=== PATIENT | male | born 1965 ===

== ENCOUNTER 2016-10-02 19:52 | Inpatient (IN) | payer MEDICAID, OTHER ==
[2016-10-02 19:52] VITALS: BMI 31.4
--- NOTE | 2016-10-02 20:26 | C.PDOC ---
History Of Present Illness Patient presents to the ED seeking detox after admitting to drinking. There are no available beds for detox currently. Patient also complains of chest discomfort and denies nausea, vomiting, and fever. Time Seen by Provider: 10/02/16 20:26 Chief Complaint (Nursing): Chest Pain History Per: Patient History/Exam Limitations: no limitations Onset/Duration Of Symptoms: Hrs Current Symptoms Are (Timing): Still Present Severity: Moderate Pain Scale Rating Of: 4 Quality: Other (discomfort) Exacerbating Factors: denies: None Alleviating Factors: None Recent travel outside of the [place]: No Additional History Per: Family Past Medical History Reviewed: Historical Data, Nursing Documentation, Vital Signs Vital Signs: Last Vital Signs Temp 98.2 F 10/02/16 20:00 Pulse 72 10/02/16 22:00 Resp 18 10/02/16 22:00 BP 110/59 L 10/02/16 22:00 Pulse Ox 99 10/02/16 22:00 - Medical History PMH: Anxiety, Depression, Gastritis, HTN, Kidney Stones, Chronic Kidney Disease , Sleep Apnea Surgical History: Endoscopy - [facility] Procedures ALCOHOL DETOXIFICATION (10/22/14) INJECT/INFUSE ELECTROLYT (04/07/14) INJECT/INFUSE NEC (04/07/14) INSERTION OF ENDOTRACHEAL AIRWAY INTO TRACHEA, VIA OPENING (02/27/15) RESPIRATORY VENTILATION, 24-96 CONSECUTIVE HOURS (02/27/15) Family History: States: No Known Family Hx - Social History Hx Tobacco Use: No Hx Alcohol Use: Yes Hx Substance Use: No - Immunization History Hx Tetanus Toxoid Vaccination: No Hx Influenza Vaccination: No Hx Pneumococcal Vaccination: No Review Of Systems Constitutional: Negative for: Fever, Chills, Sweats ENT: Negative for: Throat Pain Cardiovascular: Positive for: Chest Pain Respiratory: Negative for: Cough, Shortness of Breath Gastrointestinal: Negative for: Nausea, Vomiting, Abdominal Pain, Diarrhea Musculoskeletal: Negative for: Back Pain Skin: Negative for: Rash, Lesions, Jaundice Neurological: Negative for: Weakness Psych: Negative for: Anxiety Physical Exam - Physical Exam Appears: Non-toxic, No Acute Distress, Other (EtOH on breath ) Skin: Warm, Dry Head: Atraumatic Eye(s): bilateral: Normal Inspection Oral Mucosa: Moist Neck: Supple Chest: Symmetrical Cardiovascular: Rhythm Regular Respiratory: No Accessory Muscle Use, No Rales, No Rhonchi, No Wheezing Gastrointestinal/Abdominal: Soft, No Tenderness, No Distention, No Guarding, No Rebound, No Hernia Back: Normal Inspection Extremity: Normal ROM, No Tenderness Extremity: Bilateral: Atraumatic, Normal Color And Temperature, Normal ROM Neurological/Psych: Oriented x3, Normal Speech, Normal Cognition Gait: Steady ED Course And Treatment - Laboratory Results Result Diagrams: 10/02/16 20:40 10/02/16 20:40 ECG: Interpreted By Me, Viewed By Me ECG Rhythm: Sinus Rhythm (71), Nonspecific Changes O2 Sat by Pulse Oximetry: 98 Pulse Ox Interpretation: Normal - Radiology CXR: Interpreted by Me, Viewed By Me CXR Interpretation: Yes: Other (? rll infiltrate). No: Fracture, Pnemothorax Progress Note: cardiac work up, asa Disposition Discussed With DrThais: Alexander Licona Comment: accepted the pt on his service and took over the care at 10:39PM Doctor Will See Patient In The: ED Counseled Patient/Family Regarding: Studies Performed, Diagnosis - Disposition Disposition: HOSPITALIZED Disposition Time: 20:26 Condition: FAIR - POA Present On Arrival: Poor Glycemic Control - Clinical Impression Clinical Impression: Chest pain, Alcohol dependence, Acute renal insufficiency - Scribe Statement The provider has reviewed the documentation as recorded by the Scribe Cydney Ivory All medical record entries made by the Scribe were at my direction and personally dictated by me. I have reviewed the chart and agree that the record accurately reflects my personal performance of the history, physical exam, medical decision making, and the department course for this patient. I have also personally directed, reviewed, and agree with the discharge instructions and disposition. Decision To Admit - Pt Status Changed To: Hospital Disposition Of: Inpatient - Admit Certification Admit to Inpatient:: After my assessment, the patient will require hospitalization for at least two midnights. This is because of the severity of symptoms shown, intensity of services needed, and/or the medical risk in this patient being treated as an outpatient. - InPatient: Physician Admission Certification: I certify that this patient requires 2 or more midnights of care for the following reason:: After my assessment, the patient will require hospitalization for at least two midnights. This is because of the severity of symptoms shown, intensity of services needed, and/or the medical risk in this patient being treated as an outpatient. - . Bed Request Type: Telemetry Admitting Physician: Alexander Licona Patient Diagnosis: Chest pain, Alcohol dependence, Acute renal insufficiency
[2016-10-02] MEDS ORDERED: Sodium Chloride 0.9% 1,000 ML IV ONE (20:30)
[2016-10-02] MEDS ORDERED: Aspirin 325 mg EC Tablets PO STA (20:30)
[2016-10-02 20:43] LABS: BASO % 0.3 % (0.0-2.0); EOS % 0.1 % (0.0-4.0); HEMATOCRIT 44.9 % (35.0-51.0); LYMPH # 2.2 K/uL (1.0-4.3); LYMPH % 14.5 % (20.0-40.0); MEAN CORPUSCULAR HGB CONC 34.1 g/dL (33.0-37.0); MONO # 1.3 K/uL (0.0-0.8); MONO % 8.2 % (0.0-10.0); RED CELL DISTRIBUTION WIDTH 15.4 % (11.5-14.5)
[2016-10-02 20:45] LABS: WHITE BLOOD COUNT 15.3 K/uL (4.8-10.8)
[2016-10-02 20:51] LABS: INR 1.1
[2016-10-02 20:52] LABS: CHLORIDE 95 mmol/L (98-107)
[2016-10-02 20:53] LABS: POTASSIUM 2.6 mmol/L (3.6-5.2); SODIUM 136 mmol/L (132-148)
[2016-10-02] MEDS ORDERED: Sodium Chloride 0.9% 1,000 ML ONE (20:53)
[2016-10-02 20:55] LABS: ALB/GLOB RATIO 1.2 (1.0-2.1); AST/SGOT 44 U/L (17-59); BILIRUBIN,TOTAL 0.9 mg/dL (0.2-1.3); CARBON DIOXIDE 18 mmol/L (22-30); GFR AFRICAN-AMERICAN 17; TOTAL PROTEIN 8.2 g/dL (6.3-8.3)
[2016-10-02 20:56] LABS: ALKALINE PHOSPHATASE 120 U/L (38-126); ALT/SGPT 61 U/L (21-72); BLOOD UREA NITROGEN 23 mg/dL (9-20); CALCIUM 8.5 mg/dl (8.6-10.4); GLUCOSE,RANDOM 123 mg/dL (75-110)
[2016-10-02 20:57] LABS: ALCOHOL SERUM 52 mg/dl (0-10)
[2016-10-02] MEDS ORDERED: Potassium Chloride 10 mEq ER Tab PO STA (21:04)
[2016-10-02 22:08] LABS: RBC URINE 5 /hpf (0-3); URINE BACTERIA OCC (<OCC); URINE BILIRUBIN NEGATIVE (NEGATIVE); URINE BLOOD NEGATIVE (NEGATIVE); URINE COLOR Amber (YELLOW); URINE GLUCOSE (UA) NORMAL (Normal); URINE HYALINE CAST >20 /lpf (0-2); URINE KETONE TRACE mg/dL (NEGATIVE); URINE LEUKOCYTE ESTERASE NEG Leu/uL (Negative); URINE PROTEIN 1+ mg/dL (NEGATIVE); URINE UROBILINOGEN NORMAL mg/dL (0.2-1.0); WBC URINE 7 /hpf (0-5)
[2016-10-02] MEDS ORDERED: Potassium Chloride 20 mEq ER Tab PO ONE ×3 (22:37→23:05)
[2016-10-03] MEDS ORDERED: Potassium Chloride 20 mEq ER Tab PO ONE ×2 (00:29→00:37)
--- NOTE | 2016-10-03 00:40 | CP.PCM.HP ---
<Vijay Lucila RANGEL - Last Filed: 10/03/16 00:49> History of Present Illness - History of Present Illness History of Present Illness: Patient is a 51 year old male with past medical history of HTN and alcohol abuse who presents to the ED with complaint of chest pain, nausea, and vomiting. Patient states that chest pain began this morning and was squeezing in nature. Patient denies ever having this sensation before. Patient denies radiation and states that the pain did resolve on its own. Patient reports headache and diaphoresis at the time of the chest discomfort. Patient states that he does on occasion get chest pain and dizziness when he does not take his blood pressure medication. Patient states he does not think he took his blood pressure medication today. Patient denies abdominal pain but admits to vomiting several times a day for the past 3-4 days. He has also had decreased oral intake and decreased appetite for 3-4 days. Patient has a history of alcohol abuse but had quit drinking for approximately one year. Per family, the patient began drinking again 3 months ago when his son at age 30 of a seizure. Family states they have been trying to get to see a family therapist but have not been able to find one. Family states patient has been noticeably depressed. Per family, the patient has been drinking 10 beers per day in addition to small bottles of vodka or whiskey. Patient's last drink was the morning of admission. PMHx: HTN, alcohol abuse Meds: per EMR- metoprolol 100mg, cozaar 100mg- patient and family cannot verify - to bring medication bottles PSHx: gluteal abscess 07/2016, left knee surgery Fam Hx: denies HTN, DM, HLD, CVA, [place]; son 3 months ago at age 30 due to a seizure in his sleep after taking sleeping pills Social Hx:denies tobacco and drug use; alcohol use for 30+ years, was previously sober 1 year; currently drinks 10 beers/ day plus small bottle whiskey or vodka; lives with and younger son; currently unemployed due to alcohol use Present on Admission - Present on Admission Any Indicators Present on Admission: No Review of Systems - Constitutional Constitutional: absent: Chills, Fever, Weight Loss, Weakness - EENT Eyes: absent: Change in Vision Ears: absent: Dizziness - Cardiovascular Cardiovascular: Chest Pain (not at time of exam). absent: Dyspnea, Lightheadedness, Palpitations - Respiratory Respiratory: absent: Cough, Dyspnea - Gastrointestinal Gastrointestinal: Nausea, Vomiting. absent: Abdominal Pain, Hematemesis, Hematochezia, Melena - Genitourinary Genitourinary: Urinary Frequency. absent: Dysuria - Musculoskeletal Musculoskeletal: absent: Back Pain - Integumentary Integumentary: absent: Dry Skin, Rash, Sores - Neurological Neurological: absent: Dizziness, Weakness - Psychiatric Psychiatric: Depression Past Patient History - Infectious Disease Hx of Infectious Diseases: None - Tetanus Immunizations Tetanus Immunization: Unknown - Past Medical History & Family History Past Medical History?: Yes - Past Social History Smoking Status: Never Smoked - CARDIAC Hx Hypertension: Yes - PULMONARY Hx Sleep Apnea: Yes - HEENT Hx HEENT Problems: No - RENAL Hx Chronic Kidney Disease: Yes Hx Kidney Stones: Yes - ENDOCRINE/METABOLIC Hx Endocrine Disorders: No - INTEGUMENTARY Hx Dermatological Problems: No - MUSCULOSKELETAL/RHEUMATOLOGICAL Hx Musculoskeletal Disorders: Yes Hx Falls: Yes - GASTROINTESTINAL Hx Gastritis: Yes - GENITOURINARY/GYNECOLOGICAL Hx Sexually Transmitted Disorders: No - PSYCHIATRIC Hx Anxiety: Yes Hx Depression: Yes Hx Substance Use: No - ANESTHESIA Hx Anesthesia: Yes Hx Anesthesia Reactions: No Hx Malignant Hyperthermia: No Meds Allergies/Adverse Reactions: Allergies Allergy/AdvReac Type Severity Reaction Status Date / Time No Known Allergies Allergy Verified 10/02/16 20:10 Physical Exam - Constitutional Appears: Non-toxic, No Acute Distress - Head Exam Head Exam: ATRAUMATIC, NORMOCEPHALIC - Eye Exam Eye Exam: EOMI, PERRL. absent: Nystagmus, Scleral icterus - ENT Exam ENT Exam: Mucous Membranes Dry - Respiratory Exam Respiratory Exam: Clear to Auscultation Bilateral. absent: Rales, Rhonchi, Wheezes - Cardiovascular Exam Cardiovascular Exam: +S1, +S2 - GI/Abdominal Exam GI & Abdominal Exam: Distended, Normal Bowel Sounds, Soft. absent: Firm, Guarding, Tenderness Additional comments: no ascites - Extremities Exam Extremities exam: Positive for: normal inspection. Negative for: calf tenderness, pedal edema - Neurological Exam Neurological exam: Alert, CN II-XII Intact Additional comments: slight tremor in hands noted - Psychiatric Exam Psychiatric exam: Anxious - Skin Skin Exam: Normal Color, Warm Results - Vital Signs Recent Vital Signs: Last Vital Signs Temp 98.2 F 10/02/16 20:00 Pulse 81 10/03/16 00:09 Resp 18 10/03/16 00:09 BP 104/62 10/03/16 00:09 Pulse Ox 99 10/03/16 00:09 - Labs Result Diagrams: 10/02/16 20:40 10/02/16 20:40 Labs: Laboratory Results - last 24 hr 10/02/16 23:05 Magnesium 1.7 Assessment & Plan (1) Chest pain Assessment and Plan: ANAMARIA negative x 1, will continue to trend repeat EKG in AM Cardio consult- Dr. Chamberlain- help appreciated gave ASA 325mg once, will start 81mg daily will check echo starting crestor 5mg Status: Acute (2) Vomiting Assessment and Plan: will check lipase, abdominal ultrasound zofran prn Status: Acute (3) Acute renal insufficiency Assessment and Plan: will check renal ultrasound nephro consult- Dr. Golden- help appreciated will check urine 24hour protein, urine sodium, urine creatinine, urine osmolality, serum osmolality will start IVF after banana bag finishes Status: Acute (4) AA (alcohol abuse) Assessment and Plan: CIWA protocol fall precautions, seizure precautions, aspiration precautions ativan taper ativan IV prn seizure activity banana bag x 1, then start PO vitamins Status: Acute (5) Depression Assessment and Plan: patient depressed and started drinking again after of son 3 months ago psych consult placed, help appreciated Status: Acute (6) HTN (hypertension) Assessment and Plan: patient cannot verify meds- patient currently normotensive will continue to monitor on telemetry and add medications as necessary, pending home med verification Status: Chronic (7) Prophylactic measure Assessment and Plan: protonix daily SCDs seizure/ fall/ aspiration precautions CIWA protocol Status: Acute <Alexander Licona - Last Filed: 10/03/16 06:27> Results - Vital Signs Recent Vital Signs: Last Vital Signs Temp 97.9 F 10/03/16 05:09 Pulse 79 10/03/16 05:09 Resp 20 10/03/16 05:09 BP 100/62 10/03/16 05:09 Pulse Ox 96 10/03/16 05:09 - Labs Result Diagrams: 10/03/16 05:49 10/03/16 05:49 Labs: Laboratory Results - last 24 hr 10/02/16 10/03/1617 23:05 03:13 05:49 WBC 13.3 H RBC 4.62 Hgb 14.4 Hct 42.3 MCV 91.5 MCH 31.1 H MCHC 34.0 RDW 15.9 H Plt Count 264 MPV 9.0 Neut % (Auto) 69.4 Lymph % (Auto) 20.4 [place] % (Auto) 9.8 Eos % (Auto) 0.0 Baso % (Auto) 0.4 Neut # 9.3 H Lymph # 2.7 [place] # 1.3 H Eos # 0.0 Baso # 0.0 Sodium 134 Potassium 2.7 L Chloride 102 Carbon Dioxide 18 L Anion Gap 17 BUN 20 Creatinine 2.6 H Est GFR ( Amer) 31 Est GFR (Non-Af Amer) 26 Random Glucose 116 H Serum Osmolality 329 H Calcium 6.6 L Magnesium 1.7 Total Bilirubin 1.1 AST 33 ALT 45 Alkaline Phosphatase 85 Total Creatine Kinase 216 H 220 H CK-MB (Mass) 1.50 Troponin I, Quant < 0.0120 Total Protein 6.3 Albumin 3.3 L D Globulin 3.1 Albumin/Globulin Ratio 1.1 Triglycerides 83 Cholesterol 149 HDL Cholesterol 63 Lipase 191 Assessment & Plan - Date & Time Date: 10/03/16 (I have seen and examined the patient. I agree with the findings and plan of care as documented by Dr. Linares. Patient with chest pain. ROMIx3 with EKG. Aspirin and Statin. Alcohol abuse with nausea/ vomiting. WA protocol. Check Lipase. For acute renal insufficiency, give IVF. Consult Nephro. Monitor renal function. Monitor for acute changes.) Time: 06:26 Attending/Attestation - Attestation I have personally seen and examined this patient.: Yes I have fully participated in the care of the patient.: Yes I have reviewed all pertinent clinical information: Yes
[2016-10-03] MEDS: Folic Acid 1 MG, Thiamine 100 MG, Multivitamin (MVI) 10 ML in Dextrose 5% In Water 1,00... IV SCH ×2 (00:50→14:41)
[2016-10-03] MEDS: Sodium Chloride 0.9% 1,000 ML IV SCH ×3 (01:02→18:08)
[2016-10-03 05:58] LABS: BASO % 0.4 % (0.0-2.0); HEMATOCRIT 42.3 % (35.0-51.0); LYMPH # 2.7 K/uL (1.0-4.3); LYMPH % 20.4 % (20.0-40.0); MEAN CELL VOLUME 91.5 fL (80.0-94.0); MEAN CORPUSCULAR HEMOGLOBIN 31.1 pg (27.0-31.0); MONO # 1.3 K/uL (0.0-0.8); MONO % 9.8 % (0.0-10.0); NRBC % 0.1 % (0.0-2.0); RED CELL DISTRIBUTION WIDTH 15.9 % (11.5-14.5); WHITE BLOOD COUNT 13.3 K/uL (4.8-10.8)
[2016-10-03 06:15] LABS: POTASSIUM 2.7 mmol/L (3.6-5.2)
[2016-10-03 06:17] LABS: ALB/GLOB RATIO 1.1 (1.0-2.1); BILIRUBIN,TOTAL 1.1 mg/dL (0.2-1.3); TOTAL PROTEIN 6.3 g/dL (6.3-8.3)
[2016-10-03 06:18] LABS: CALCIUM 6.6 mg/dl (8.6-10.4)
[2016-10-03 06:33] LABS: T4 6.32 ug/dL (5.5-11.0)
[2016-10-03 06:47] LABS: THYROID STIMULATING HORMONE 0.69 mIU/L (0.46-4.68)
[2016-10-03] MEDS ORDERED: Potassium Chloride 20 mEq 100 ML IVPB ONE ×2 (07:50→12:00)
--- NOTE | 2016-10-03 08:11 | CP.PCM.CON ---
History of Present Illness - History of Present Illness History of Present Illness: I was asked to see patient for evalaution of chest pain. He is currently heavily sedated. Patient is being treated for alcohol abuse. Review of Systems - Review of Systems Systems not reviewed;Unavailable: Intoxicated Past Patient History - Infectious Disease Hx of Infectious Diseases: None - Tetanus Immunizations Tetanus Immunization: Unknown - Past Medical History & Family History Past Medical History?: Yes - Past Social History Smoking Status: Never Smoked - CARDIAC Hx Hypertension: Yes - PULMONARY Hx Sleep Apnea: Yes - HEENT Hx HEENT Problems: No - RENAL Hx Chronic Kidney Disease: Yes Hx Kidney Stones: Yes - ENDOCRINE/METABOLIC Hx Endocrine Disorders: No - INTEGUMENTARY Hx Dermatological Problems: No - MUSCULOSKELETAL/RHEUMATOLOGICAL Hx Musculoskeletal Disorders: Yes Hx Falls: Yes - GASTROINTESTINAL Hx Gastritis: Yes - GENITOURINARY/GYNECOLOGICAL Hx Sexually Transmitted Disorders: No - PSYCHIATRIC Hx Anxiety: Yes Hx Depression: Yes Hx Substance Use: No - ANESTHESIA Hx Anesthesia: Yes Hx Anesthesia Reactions: No Hx Malignant Hyperthermia: No Meds Allergies/Adverse Reactions: Allergies Allergy/AdvReac Type Severity Reaction Status Date / Time No Known Allergies Allergy Verified 10/02/16 20:10 - Medications Medications: Current Medications Aspirin (Aspirin Chewable) 81 mg PO DAILY [facility] Folic Acid (Folic Acid) 1 mg PO DAILY [facility] Folic Acid 1 mg/ Thiamine HCl 100 mg/ Multivitamins/Vitamin C 10 ml/ Dextrose 1 ,011.2 mls @ 75 mls/hr IV .[id number] [facility] Last Admin: 10/03/16 00:50 Dose: 75 mls/hr Sodium Chloride (Sodium Chloride 0.9%) 1,000 mls @ 125 mls/hr IV .Q8H [facility] Last Admin: 10/03/16 01:02 Dose: Not Given Potassium Chloride (Potassium Chloride 20 Meq/100 Ml) 100 mls @ 50 mls/hr IVPB ONCE ONE Stop: 10/03/16 09:49 Potassium Chloride (Potassium Chloride 20 Meq/100 Ml) 100 mls @ 50 mls/hr IVPB ONCE ONE Stop: 10/03/16 13:59 Lorazepam (Ativan) 2 mg PO Q4 [facility] PRN Reason: Taper Stop: 10/08/16 03:59 Last Admin: 10/03/16 05:06 Dose: 2 mg Lorazepam (Ativan) 1 mg IVP Q4 PRN PRN Reason: Seizure activity Multivitamins (Hexavitamin) 1 tab PO DAILY [facility] Ondansetron HCl (Zofran Inj) 4 mg IVP Q4H PRN PRN Reason: Nausea/Vomiting Pantoprazole Sodium (Protonix Ec Tab) 40 mg PO DAILY [facility] Rosuvastatin Calcium (Crestor) 5 mg PO HS [facility] Last Admin: 10/03/16 00:33 Dose: 5 mg Thiamine HCl (Vitamin B1 Tab) 100 mg PO DAILY [facility] Physical Exam - Constitutional Appears: Non-toxic - Head Exam Head Exam: NORMAL INSPECTION - Eye Exam Eye Exam: Normal appearance - ENT Exam ENT Exam: Mucous Membranes Moist - Neck Exam Neck exam: Positive for: Full Rom - Respiratory Exam Respiratory Exam: Decreased Breath Sounds - Cardiovascular Exam Cardiovascular Exam: REGULAR RHYTHM - GI/Abdominal Exam GI & Abdominal Exam: Normal Bowel Sounds - Rectal Exam Rectal Exam: Deferred - Extremities Exam Extremities exam: Negative for: pedal edema - Back Exam Back exam: NORMAL INSPECTION - Skin Skin Exam: Normal Color Results - Vital Signs Recent Vital Signs: Last Vital Signs Temp 97.8 F 10/03/16 06:00 Pulse 105 H 10/03/16 07:33 Resp 16 10/03/16 06:00 BP 106/67 10/03/16 06:00 Pulse Ox 99 10/03/16 06:00 - Labs Result Diagrams: 10/04/16 09:57 10/04/16 09:57 Labs: Laboratory Results - last 24 hr 10/02/16 10/03/16 10/03/16 23:05 03:13 05:49 WBC 13.3 H RBC 4.62 Hgb 14.4 Hct 42.3 MCV 91.5 MCH 31.1 H MCHC 34.0 RDW 15.9 H Plt Count 264 MPV 9.0 Neut % (Auto) 69.4 Lymph % (Auto) 20.4 [place] % (Auto) 9.8 Eos % (Auto) 0.0 Baso % (Auto) 0.4 Neut # 9.3 H Lymph # 2.7 [place] # 1.3 H Eos # 0.0 Baso # 0.0 Sodium 134 Potassium 2.7 L Chloride 102 Carbon Dioxide 18 L Anion Gap 17 BUN 20 Creatinine 2.6 H Est GFR ( Amer) 31 Est GFR (Non-Af Amer) 26 Random Glucose 116 H Serum Osmolality 329 H Calcium 6.6 L Magnesium 1.7 Total Bilirubin 1.1 AST 33 ALT 45 Alkaline Phosphatase 85 Total Creatine Kinase 216 H 220 H CK-MB (Mass) 1.50 1.81 Troponin I, Quant < 0.0120 < 0.0120 Total Protein 6.3 Albumin 3.3 L D Globulin 3.1 Albumin/Globulin Ratio 1.1 Triglycerides 83 Cholesterol 149 LDL Cholesterol Direct 67 HDL Cholesterol 63 Lipase 191 Thyroxine (T4) 6.32 TSH 3rd Generation 0.69 Assessment & Plan (1) Chest pain Assessment and Plan: unable to question pateint due to intaoxication. recommend serial cardaic enzymes. If negative consider outpatient stress test. Status: Acute (2) AA (alcohol abuse) Assessment and Plan: watch for delirium tremens Status: Acute (3) HTN (hypertension) Assessment and Plan: will need to monitor closely Status: Chronic
--- NOTE | 2016-10-03 08:11 | CP.PCM.CON ---
History of Present Illness - History of Present Illness History of Present Illness: patient seen/examind. full consult to follow. currently intoxicated. somnolent. check serial cardiac enzymes Past Patient History - Infectious Disease Hx of Infectious Diseases: None - Tetanus Immunizations Tetanus Immunization: Unknown - Past Medical History & Family History Past Medical History?: Yes - Past Social History Smoking Status: Never Smoked - CARDIAC Hx Hypertension: Yes - PULMONARY Hx Sleep Apnea: Yes - HEENT Hx HEENT Problems: No - RENAL Hx Chronic Kidney Disease: Yes Hx Kidney Stones: Yes - ENDOCRINE/METABOLIC Hx Endocrine Disorders: No - INTEGUMENTARY Hx Dermatological Problems: No - MUSCULOSKELETAL/RHEUMATOLOGICAL Hx Musculoskeletal Disorders: Yes Hx Falls: Yes - GASTROINTESTINAL Hx Gastritis: Yes - GENITOURINARY/GYNECOLOGICAL Hx Sexually Transmitted Disorders: No - PSYCHIATRIC Hx Anxiety: Yes Hx Depression: Yes Hx Substance Use: No - ANESTHESIA Hx Anesthesia: Yes Hx Anesthesia Reactions: No Hx Malignant Hyperthermia: No Meds Allergies/Adverse Reactions: Allergies Allergy/AdvReac Type Severity Reaction Status Date / Time No Known Allergies Allergy Verified 10/02/16 20:10 - Medications Medications: Current Medications Aspirin (Aspirin Chewable) 81 mg PO DAILY [facility] Folic Acid (Folic Acid) 1 mg PO DAILY [facility] Folic Acid 1 mg/ Thiamine HCl 100 mg/ Multivitamins/Vitamin C 10 ml/ Dextrose 1 ,011.2 mls @ 75 mls/hr IV .[id number] [facility] Last Admin: 10/03/16 00:50 Dose: 75 mls/hr Sodium Chloride (Sodium Chloride 0.9%) 1,000 mls @ 125 mls/hr IV .Q8H [facility] Last Admin: 10/03/16 01:02 Dose: Not Given Potassium Chloride (Potassium Chloride 20 Meq/100 Ml) 100 mls @ 50 mls/hr IVPB ONCE ONE Stop: 10/03/16 09:49 Potassium Chloride (Potassium Chloride 20 Meq/100 Ml) 100 mls @ 50 mls/hr IVPB ONCE ONE Stop: 10/03/16 13:59 Lorazepam (Ativan) 2 mg PO Q4 [facility] PRN Reason: Taper Stop: 10/08/16 03:59 Last Admin: 10/03/16 05:06 Dose: 2 mg Lorazepam (Ativan) 1 mg IVP Q4 PRN PRN Reason: Seizure activity Multivitamins (Hexavitamin) 1 tab PO DAILY [facility] Ondansetron HCl (Zofran Inj) 4 mg IVP Q4H PRN PRN Reason: Nausea/Vomiting Pantoprazole Sodium (Protonix Ec Tab) 40 mg PO DAILY [facility] Rosuvastatin Calcium (Crestor) 5 mg PO HS [facility] Last Admin: 10/03/16 00:33 Dose: 5 mg Thiamine HCl (Vitamin B1 Tab) 100 mg PO DAILY [facility] Results - Vital Signs Recent Vital Signs: Last Vital Signs Temp 97.8 F 10/03/16 06:00 Pulse 105 H 10/03/16 07:33 Resp 16 10/03/16 06:00 BP 106/67 10/03/16 06:00 Pulse Ox 99 10/03/16 06:00 - Labs Result Diagrams: 10/03/16 05:49 10/03/16 05:49 Labs: Laboratory Results - last 24 hr 10/02/16 10/03/16 10/03/16 23:05 03:13 05:49 WBC 13.3 H RBC 4.62 Hgb 14.4 Hct 42.3 MCV 91.5 MCH 31.1 H MCHC 34.0 RDW 15.9 H Plt Count 264 MPV 9.0 Neut % (Auto) 69.4 Lymph % (Auto) 20.4 [place] % (Auto) 9.8 Eos % (Auto) 0.0 Baso % (Auto) 0.4 Neut # 9.3 H Lymph # 2.7 [place] # 1.3 H Eos # 0.0 Baso # 0.0 Sodium 134 Potassium 2.7 L Chloride 102 Carbon Dioxide 18 L Anion Gap 17 BUN 20 Creatinine 2.6 H Est GFR ( Amer) 31 Est GFR (Non-Af Amer) 26 Random Glucose 116 H Serum Osmolality 329 H Calcium 6.6 L Magnesium 1.7 Total Bilirubin 1.1 AST 33 ALT 45 Alkaline Phosphatase 85 Total Creatine Kinase 216 H 220 H CK-MB (Mass) 1.50 1.81 Troponin I, Quant < 0.0120 < 0.0120 Total Protein 6.3 Albumin 3.3 L D Globulin 3.1 Albumin/Globulin Ratio 1.1 Triglycerides 83 Cholesterol 149 LDL Cholesterol Direct 67 HDL Cholesterol 63 Lipase 191 Thyroxine (T4) 6.32 TSH 3rd Generation 0.69
--- NOTE | 2016-10-03 08:23 | RAD ---
PROCEDURE: CHEST RADIOGRAPH, 1 VIEW HISTORY: chest pain COMPARISON: 07/26/2016 FINDINGS: LUNGS: Mild venous congestion. PLEURA: No pneumothorax or pleural fluid seen. CARDIOVASCULAR: Normal. OSSEOUS STRUCTURES: No significant abnormalities. VISUALIZED UPPER ABDOMEN: Normal. OTHER FINDINGS: None. IMPRESSION: Mild venous congestion.
--- NOTE | 2016-10-03 09:32 | PCM.PSYCH ---
Initial Psychiatric Evaluation - Initial Psychiatric Evaluation Type of Admission: Voluntary Legal Status: Capacity Chief Complaint (in patient's own words): "I don't want to know anything" Patient's Reaction to Hospitalization: Positive History of Present Illness and Precipitating Events: The pt is seen, chart reviewed, case discussed with staff. History was obtained from patient, his answers were inconsistent at times. Pt is a 51 year old male that came to the ED yesterday, October 02 complaining of chest pain and seeking detox. Pt states that his called 911 for him. Pt lives with his in [place], [place]. Pt has 3 children, 2 are alive and 1 son . Pt stated that his son 3 months ago. Pt reports alcohol abuse that started 5 years ago. Pt admits to drinking more than 6 Budwiser beers every other day with a half of bottle of whiskey. Pt reports that he has been to detox many times. Pt states his last drink was yesterday morning. Pt denies other drug use. Pt denies smoking cigarettes. Pt complains of chest pain, SOB and sweating. Pt denies abdominal pain, headaches, nausea, vomiting and bodyaches. Pt denies thoughts of hurting himself or other people. Pt states he does not have any visual or auditory hallucinations. Pt denies depression or anxiety. Pt current mood is low. Pt stated that he "did not want to know anything about anything" multiple times throughout taking his history. He states his current plan is to attend a rehab center for 3 days. Past Medical History: Hypertension Past Psychiatric History: Denies Family Psychiatric History: Denies Family substance abuse: Father-alcohol Current Medications: Active Medications Generic Name Dose Route Start Last Admin Trade Name Mayur PRN Reason Stop Dose Admin Aspirin 81 mg 10/03/16 10:00 Aspirin Chewable PO DAILY WIL[facility]ID Folic Acid 1 mg 10/03/16 10:00 Folic Acid PO DAILY [facility] Folic Acid 1 mg/ Thiamine HCl 1,011.2 mls @ 75 mls/hr 10/02/16 23:45 10/03/16 00:50 100 mg/ Multivitamins/Vitamin IV 75 mls/hr C 10 ml/ Dextrose .[id number] [facility] Administration Sodium Chloride 1,000 mls @ 125 mls/hr 10/03/16 00:30 10/03/16 08:33 Sodium Chloride 0.9% IV 125 mls/hr .Q8H [facility] Administration Potassium Chloride 100 mls @ 50 mls/hr 10/03/16 07:50 10/03/16 08:34 Potassium Chloride 20 Meq/100 Ml IVPB 10/03/16 09:49 50 mls/hr ONCE ONE Administration Potassium Chloride 100 mls @ 50 mls/hr 10/03/16 12:00 Potassium Chloride 20 Meq/100 Ml IVPB 10/03/16 13:59 ONCE ONE Lorazepam 1 mg 10/03/16 00:31 Ativan IVP Q4 PRN Seizure activity Lorazepam 2 mg 10/03/16 09:29 Ativan PO 10/08/16 09:28 Q4 [facility] Taper Multivitamins 1 tab 10/03/16 10:00 Hexavitamin PO DAILY [facility] Ondansetron HCl 4 mg 10/03/16 00:45 Zofran Inj IVP Q4H PRN Nausea/Vomiting Pantoprazole Sodium 40 mg 10/03/16 10:00 Protonix Ec Tab PO DAILY [facility] Rosuvastatin Calcium 5 mg 10/03/16 00:30 10/03/16 00:33 Crestor PO 5 mg HS [facility] Administration Thiamine HCl 100 mg 10/03/16 10:00 Vitamin B1 Tab PO DAILY [facility] Past Psychiatric History - Past Psychiatric History Previous Treatment History: None Pertinent Medical Hx (Current Medical&Sleep Prob, Allergies): Allergies Allergy/AdvReac Type Severity Reaction Status Date / Time No Known Allergies Allergy Verified 10/02/16 20:10 Folic Acid 1 mg PO DAILY 08/01/16 Losartan Potassium [Cozaar] 100 mg PO DAILY 08/01/16 Metoprolol Succinate [Toprol XL] 100 mg PO DAILY 08/01/16 Review of Systems - Review of Systems All systems: reviewed and no additional remarkable complaints except - Psychiatric Psychiatric: Anxiety, Depression, Irritability Mental Status Examination - Personal Presentation Personal Presentation: Looks older than stated age - Affect Affect: Constricted, Depressed - Motor Activity Motor Activity: Calm - Reliability in Providing Information Reliability in Providing Information: Good - Speech Speech: Organized - Mood Mood: Depressed, Anxious - Formal Thought Process Formal Thought Process: No Impairment - Obsessions/Compulsions Obsessions: No Compulsions: No - Cognitive Functions Orientation: Person, Place, Situation, Time Sensorium: Alert Attention/Concentration: Attentive Abstract Thinking: [place] Estimate of Intelligence: Below average Judgement: Imparied, as evidence by: Poor judgement, Imparied, as evidence by: Lack of insight into illness - Risk Risk: Withdrawal, Diminished functioning - Strength & Assets Inventory Strength & Assets Inventory: Cooperative DSM 5 DX - DSM 5 DSM 5 Diagnosis: Major depressive disorder recurrent moderate Alcohol use disorder severe Alcohol withdrawal - Recommended/Plan of Treatment Treatment Recommendations and Plan of Treatment: Major depressive disorder recurrent moderate CBT Psychoeducation Supportive therapy, indivdual therapy Start Zoloft 50 mg PO Daily Alcohol use disorder severe As needed meds Monitor signs and symptoms ID/CBT Attend groups and activities Support and Psychoeducation Refer to program Alcohol withdrawal Lorazepam taper Folic acid 1 mg PO daily Multivitamins 1 tab PO daily Thiamine Hcl 100 mg PO daily CBT Supportive therapy, individual therapy Monitor signs and symptoms 33 min - Smoking Cessation Smoking Cessation Initiated: No
--- NOTE | 2016-10-03 10:59 | CP.PCM.CON ---
History of Present Illness - History of Present Illness History of Present Illness: 51 y/o male with Hx/o HTN, alcoholism Sleep Apnea is admitted to ICU for c/o chest pain which was squeezin & associated with diaphoresis. Renal consult is requested because of elevated BUN & Creat Pt had been drinking untill the morning of day of admission. Has been depressed because of the loss of 30 y/o son from seizure. Hx/o vomiting several times a day for the last 3-4 days. Pt has Hx/o kidney stones. Unclear at this time if he has chronic renal insufficiency Past Patient History - Infectious Disease Hx of Infectious Diseases: None - Tetanus Immunizations Tetanus Immunization: Unknown - Past Medical History & Family History Past Medical History?: Yes - Past Social History Smoking Status: Never Smoked - CARDIAC Hx Hypertension: Yes - PULMONARY Hx Sleep Apnea: Yes - HEENT Hx HEENT Problems: No - RENAL Hx Chronic Kidney Disease: Yes Hx Kidney Stones: Yes - ENDOCRINE/METABOLIC Hx Endocrine Disorders: No - INTEGUMENTARY Hx Dermatological Problems: No - MUSCULOSKELETAL/RHEUMATOLOGICAL Hx Musculoskeletal Disorders: Yes Hx Falls: Yes - GASTROINTESTINAL Hx Gastritis: Yes - GENITOURINARY/GYNECOLOGICAL Hx Sexually Transmitted Disorders: No - PSYCHIATRIC Hx Anxiety: Yes Hx Depression: Yes Hx Substance Use: No - ANESTHESIA Hx Anesthesia: Yes Hx Anesthesia Reactions: No Hx Malignant Hyperthermia: No Meds Allergies/Adverse Reactions: Allergies Allergy/AdvReac Type Severity Reaction Status Date / Time No Known Allergies Allergy Verified 10/02/16 20:10 - Medications Medications: Current Medications Aspirin (Aspirin Chewable) 81 mg PO DAILY [facility] Folic Acid (Folic Acid) 1 mg PO DAILY [facility] Folic Acid 1 mg/ Thiamine HCl 100 mg/ Multivitamins/Vitamin C 10 ml/ Dextrose 1 ,011.2 mls @ 75 mls/hr IV .[id number] [facility] Last Admin: 10/03/16 00:50 Dose: 75 mls/hr Sodium Chloride (Sodium Chloride 0.9%) 1,000 mls @ 125 mls/hr IV .Q8H [facility] Last Admin: 10/03/16 08:33 Dose: 125 mls/hr Potassium Chloride (Potassium Chloride 20 Meq/100 Ml) 100 mls @ 50 mls/hr IVPB ONCE ONE Stop: 10/03/16 13:59 Lorazepam (Ativan) 1 mg IVP Q4 PRN PRN Reason: Seizure activity Lorazepam (Ativan) 2 mg PO Q4 [facility] PRN Reason: Taper Stop: 10/08/16 09:28 Multivitamins (Hexavitamin) 1 tab PO DAILY [facility] Ondansetron HCl (Zofran Inj) 4 mg IVP Q4H PRN PRN Reason: Nausea/Vomiting Pantoprazole Sodium (Protonix Ec Tab) 40 mg PO DAILY [facility] Rosuvastatin Calcium (Crestor) 5 [address] [facility] Last Admin: 10/03/16 00:33 Dose: 5 mg Thiamine HCl (Vitamin B1 Tab) 100 mg PO DAILY [facility] Physical Exam - Constitutional Additional comments: Pt is obese. Fruity odor on breath. Loud snoring noted - Head Exam Head Exam: ATRAUMATIC, NORMOCEPHALIC - Eye Exam Additional comments: No icterus - ENT Exam ENT Exam: Mucous Membranes Dry - Neck Exam Additional comments: Neck supple - Respiratory Exam Additional comments: Lungs clear - Cardiovascular Exam Cardiovascular Exam: Tachycardia, REGULAR RHYTHM Additional comments: 112/min - GI/Abdominal Exam Additional comments: Obese. Nontender - Rectal Exam Rectal Exam: Deferred - Extremities Exam Additional comments: No pedal edema or cyanosis - Neurological Exam Additional comments: Lethargic but arousable. Answers simple question by nodding Moves all extrem equally Results - Vital Signs Recent Vital Signs: Last Vital Signs Temp 97.8 F 10/03/16 06:00 Pulse 105 H 10/03/16 07:33 Resp 16 10/03/16 06:00 BP 106/67 10/03/16 06:00 Pulse Ox 99 10/03/16 06:00 - Labs Result Diagrams: 10/03/16 05:49 10/03/16 05:49 Labs: Laboratory Results - last 24 hr 10/02/16 10/03/16 10/03/16 23:05 03:13 05:49 WBC 13.3 H RBC 4.62 Hgb 14.4 Hct 42.3 MCV 91.5 MCH 31.1 H MCHC 34.0 RDW 15.9 H Plt Count 264 MPV 9.0 Neut % (Auto) 69.4 Lymph % (Auto) 20.4 Bath % (Auto) 9.8 Eos % (Auto) 0.0 Baso % (Auto) 0.4 Neut # 9.3 H Lymph # 2.7 Bath # 1.3 H Eos # 0.0 Baso # 0.0 Sodium 134 Potassium 2.7 L Chloride 102 Carbon Dioxide 18 L Anion Gap 17 BUN 20 Creatinine 2.6 H Est GFR ( Amer) 31 Est GFR (Non-Af Amer) 26 Random Glucose 116 H Hemoglobin A1c 5.9 Serum Osmolality 329 H Calcium 6.6 L Magnesium 1.7 Total Bilirubin 1.1 AST 33 ALT 45 Alkaline Phosphatase 85 Total Creatine Kinase 216 H 220 H CK-MB (Mass) 1.50 1.81 Troponin I, Quant < 0.0120 < 0.0120 Total Protein 6.3 Albumin 3.3 L D Globulin 3.1 Albumin/Globulin Ratio 1.1 Triglycerides 83 Cholesterol 149 LDL Cholesterol Direct 67 HDL Cholesterol 63 Lipase 191 Thyroxine (T4) 6.32 TSH 3rd Generation 0.69 Ur Random Creatinine 10/03/16 08:18 WBC RBC Hgb Hct MCV MCH MCHC RDW Plt Count MPV Neut % (Auto) Lymph % (Auto) Bath % (Auto) Eos % (Auto) Baso % (Auto) Neut # Lymph # Bath # Eos # Baso # Sodium Potassium Chloride Carbon Dioxide Anion Gap BUN Creatinine Est GFR ( Amer) Est GFR (Non-Af Amer) Random Glucose Hemoglobin A1c Serum Osmolality Calcium Magnesium Total Bilirubin AST ALT Alkaline Phosphatase Total Creatine Kinase CK-MB (Mass) Troponin I, Quant Total Protein Albumin Globulin Albumin/Globulin Ratio Triglycerides Cholesterol LDL Cholesterol Direct HDL Cholesterol Lipase Thyroxine (T4) TSH 3rd Generation Ur Random Creatinine 131.1 Assessment & Plan - Assessment and Plan (Free Text) Assessment: Acute kidney injury secondary to dehdration from drinking & vomiting In 07/2016 Pts creat was 0.6 Renal function appears to be improving with hydration Anion gap acidosis & Osmolar gap is because of EtOH Hypokalemia. K+ was suulemented. MOnitor K+,Mg++ HTN JOSEPH Plan: Continue current MX Renal US is done report is pending Urine spot lytes Supplement K+ as needed Mg level
[2016-10-03] MEDS: Multiple Vitamins Tab PO SCH (11:23)
[2016-10-03] MEDS: Pantoprazole 40 mg EC Tab PO SCH (11:25)
--- NOTE | 2016-10-03 11:48 | US ---
Abdominal ultrasound History: Abdominal pain. Vomiting. Comparison: None available. Technique: Real-time sonography was performed through the abdomen. Findings: Liver: 16.1 centimeters in length. Increased echogenicity suggestive for fatty infiltration. Gallbladder appears preserved. Normal wall thickness of 2 millimeters. Common bile duct measures 3.2 millimeters, within normal limits. Pancreas not well visualized. Spleen measures 9.7 centimeters in length, within normal limits. Visualized aorta and IVC are preserved. Right kidney: 12.5 x 5.9 x 5.9 centimeters, within normal limits. Left Kidney: 12.8 x 6.0 x 5.9 centimeters. Upper pole hypoechoic cyst measuring 2.7 x 1.8 x 2.2 centimeters. No calculi or hydronephrosis. Impression: Fatty infiltration of the liver. Pancreas not well visualized. 2.7 centimeters upper pole hypoechoic cyst in the left kidney.
[2016-10-03 12:26] LABS: BASO # 0.1 K/uL (0.0-0.2); BASO % 0.7 % (0.0-2.0); HEMATOCRIT 43.8 % (35.0-51.0); LYMPH % 18.8 % (20.0-40.0); MEAN CELL VOLUME 92.1 fL (80.0-94.0); MEAN CORPUSCULAR HEMOGLOBIN 31.5 pg (27.0-31.0); MEAN CORPUSCULAR HGB CONC 34.2 g/dL (33.0-37.0); MEAN PLATELET VOLUME 9.1 fL (7.2-11.7); MONO % 9.3 % (0.0-10.0); RED CELL DISTRIBUTION WIDTH 15.5 % (11.5-14.5); WHITE BLOOD COUNT 10.9 K/uL (4.8-10.8)
[2016-10-03 12:33] LABS: CHLORIDE 99 mmol/L (98-107); POTASSIUM 2.9 mmol/L (3.6-5.2); SODIUM 137 mmol/L (132-148)
[2016-10-03 12:35] LABS: BILIRUBIN,TOTAL 0.8 mg/dL (0.2-1.3); GFR AFRICAN-AMERICAN 31
[2016-10-03 12:36] LABS: ALB/GLOB RATIO 1.3 (1.0-2.1); ALKALINE PHOSPHATASE 98 U/L (38-126); ALT/SGPT 50 U/L (21-72); AST/SGOT 35 U/L (17-59); BLOOD UREA NITROGEN 19 mg/dL (9-20); CARBON DIOXIDE 22 mmol/L (22-30); GLUCOSE,RANDOM 144 mg/dL (75-110); PHOSPHOROUS 2.8 mg/dL (2.5-4.5); TOTAL PROTEIN 7.4 g/dL (6.3-8.3)
[2016-10-03 12:37] LABS: CALCIUM 8.2 mg/dl (8.6-10.4); MAGNESIUM 1.6 mg/dL (1.6-2.3)
[2016-10-03] MEDS ORDERED: Tramadol 25 mg PO PRN (14:32)
[2016-10-03] MEDS ORDERED: Oxycodone/Acetaminophen 5/325 mg Tab PO PRN (14:32)
--- NOTE | 2016-10-03 17:06 | CT ---
PROCEDURE: CT HEAD WITHOUT CONTRAST. HISTORY: headache/alcoholic/ possible COMPARISON: Noncontrast head CT performed 12/04/13 TECHNIQUE: Axial computed tomography images were obtained through the head/brain without intravenous contrast. Radiation dose: Total exam DLP = 887.19 mGy-cm. This CT exam was performed using one or more of the following dose reduction techniques: Automated exposure control, adjustment of the mA and/or kV according to patient size, and/or use of iterative reconstruction technique. FINDINGS: HEMORRHAGE: No intracranial hemorrhage. BRAIN: Generalized atrophy. Bilateral subdural hygromas. No mass effect or edema. Intracranial atherosclerotic calcifications. Mild scattered white matter hypodensities, which are nonspecific, but often seen with chronic microvascular ischemic disease. Please note that MRI with diffusion imaging is more sensitive in the detection of acute ischemic event. VENTRICLES: No hydrocephalus. CALVARIUM: Unremarkable. PARANASAL SINUSES: Unremarkable as visualized. No significant inflammatory changes. MASTOID AIR CELLS: Unremarkable as visualized. No inflammatory changes. OTHER FINDINGS: None. IMPRESSION: Generalized atrophy. Bilateral subdural hygromas. Scattered nonspecific white matter changes.
--- NOTE | 2016-10-03 19:31 | CP.PCM.PN ---
<Alejandro Cancino - Last Filed: 10/03/16 19:12> Subjective - Date & Time of Evaluation Date of Evaluation: 10/03/16 Time of Evaluation: 09:32 - Subjective Subjective: Pt seen and examined. Pt complaining of pain in his right chest. Pt somnoloent and confused. Full ROS unattainable. Objective - Vital Signs/Intake and Output Vital Signs (last 24 hours): Temp Pulse Resp BP Pulse Ox 98.7 F 106 H 23 122/75 94 L 10/03/16 08:00 10/03/16 08:00 10/03/16 08:00 10/03/16 08:00 10/03/16 08:00 Intake and Output: 10/03/16 10/04/16 18:59 06:59 Output Total 200 Balance -200 - Medications Medications: Current Medications Aspirin (Aspirin Chewable) 81 mg PO DAILY [facility] Last Admin: 10/03/16 11:25 Dose: 81 mg Folic Acid (Folic Acid) 1 mg PO DAILY [facility] Last Admin: 10/03/16 11:25 Dose: 1 mg Folic Acid 1 mg/ Thiamine HCl 100 mg/ Multivitamins/Vitamin C 10 ml/ Dextrose 1 ,011.2 mls @ 75 mls/hr IV .[id number] [facility] Last Admin: 10/03/16 14:41 Dose: 75 mls/hr Sodium Chloride (Sodium Chloride 0.9%) 1,000 mls @ 125 mls/hr IV .Q8H [facility] Last Admin: 10/03/16 18:08 Dose: 125 mls/hr Lorazepam (Ativan) 1 mg IVP Q4 PRN PRN Reason: Seizure activity Last Admin: 10/03/16 18:08 Dose: 1 mg Lorazepam (Ativan) 2 mg PO Q4 [facility] PRN Reason: Taper Stop: 10/08/16 09:28 Last Admin: 10/03/16 18:07 Dose: Not Given Multivitamins (Hexavitamin) 1 tab PO DAILY [facility] Last Admin: 10/03/16 11:23 Dose: 1 tab Ondansetron HCl (Zofran Inj) 4 mg IVP Q4H PRN PRN Reason: Nausea/Vomiting Oxycodone/Acetaminophen (Percocet 5/325 Mg Tab) 1 tab PO Q6H PRN PRN Reason: Pain, moderate (4-7) Stop: 10/06/16 14:33 Last Admin: 10/03/16 14:55 Dose: 1 tab Pantoprazole Sodium (Protonix Ec Tab) 40 mg PO DAILY [facility] Last Admin: 10/03/16 11:25 Dose: 40 mg Rosuvastatin Calcium (Crestor) 5 mg PO HS [facility] Last Admin: 10/03/16 00:33 Dose: 5 mg Thiamine HCl (Vitamin B1 Tab) 100 mg PO DAILY [facility] Last Admin: 10/03/16 11:26 Dose: 100 mg Tramadol HCl (Ultram) 25 mg PO TID PRN PRN Reason: Pain, Mild (1-3) Last Admin: 10/03/16 18:08 Dose: 25 mg - Labs Labs: 10/03/16 12:19 10/03/16 12:19 PT 12.1 SECONDS (9.7-12.2) 10/02/16 20:40 INR 1.1 10/02/16 20:40 APTT 32 SECONDS (21-34) 10/02/16 20:40 - Constitutional Appears: Toxic, No Acute Distress - Head Exam Head Exam: ATRAUMATIC, NORMOCEPHALIC - ENT Exam ENT Exam: Mucous Membranes Moist - Respiratory Exam Respiratory Exam: Clear to Ausculation Bilateral. absent: Rales, Rhonchi, Wheezes - Cardiovascular Exam Cardiovascular Exam: +S1, +S2. absent: Gallop, Rubs - GI/Abdominal Exam GI & Abdominal Exam: Soft. absent: Guarding, Rigid - Extremities Exam Extremities Exam: Full ROM. absent: Pedal Edema - Neurological Exam Neurological Exam: Awake. absent: Alert, Oriented x3 - Skin Skin Exam: Normal Color, Warm Assessment and Plan - Assessment and Plan (Free Text) Assessment: SIRS: WBC - 10.9, trending down Tachycardic 108 bpm CXR - mild venous congestion Afebrile Chest Pain r/o ACS: EKG - NSR Troponins negative x 3 CXR - mild venous congestion Ultram prn for pain Percocet prn for pain Cardiology, Dr. Chamberlain, consulted. Help appreciated. Alcohol Withdrawal: Serum alcohol - 52 Ativan 1 mg IV Q4h prn Ativan 2 mg po 24h prn Banana Bag IV Folic acid 1 mg po qd Thiamine 100 mg po qd Head CT - generalized atrophy, bilateral subdural hygromas (please see full report) Abd/Bladder u/s: Fatty liver Multivitamins 1 tab po qd NS 125 IVF 125 cc/hr Psychiatrist, Dr. Heath, consulted. Help appreciated. Alcohol cessation counseling Zofran 4 mg Iv q4h prn for nausea Acute Kidney Injury: Creatinine 4.5 initially, 2.6 today Clothes Wringer, Dr. Golden, consulted. Help appreciated. NS 125 IVF 125 cc/hr Prophylactic Measures: DVT: SCDs GI: Protonix 40 mg IV qd <Allen Kwong - Last Filed: 11/07/16 12:07> Objective - Vital Signs/Intake and Output Vital Signs (last 24 hours): Temp Pulse Resp BP Pulse Ox 98.5 F 76 20 157/99 H 96 10/05/16 15:00 10/05/16 15:00 10/05/16 15:00 10/05/16 15:00 10/05/16 15:00 - Labs Labs: 10/04/16 09:57 10/04/16 09:57 PT 12.1 SECONDS (9.7-12.2) 10/02/16 20:40 INR 1.1 10/02/16 20:40 APTT 32 SECONDS (21-34) 10/02/16 20:40 Attending/Attestation - Attestation I have personally seen and examined this patient.: Yes I have fully participated in the care of the patient.: Yes I have reviewed all pertinent clinical information, including history, physical exam and plan: Yes Notes (Text): Patient seen and examined with the resident. Agree with the resident's evaluation, assessment and plan. SIRS: WBC - 10.9, trending down Tachycardic 108 bpm CXR - mild venous congestion Afebrile Chest Pain r/o ACS: EKG - NSR Troponins negative x 3 CXR - mild venous congestion Ultram prn for pain Percocet prn for pain Cardiology, Dr. Chamberlain, consulted. Help appreciated. Alcohol Withdrawal: Serum alcohol - 52 Ativan 1 mg IV Q4h prn Ativan 2 mg po 24h prn Banana Bag IV Folic acid 1 mg po qd Thiamine 100 mg po qd Head CT - generalized atrophy, bilateral subdural hygromas (please see full report) Abd/Bladder u/s: Fatty liver Multivitamins 1 tab po qd NS 125 IVF 125 cc/hr Psychiatrist, Dr. Heath, consulted. Help appreciated. Alcohol cessation counseling Zofran 4 mg Iv q4h prn for nausea Acute Kidney Injury: Creatinine 4.5 initially, 2.6 today Clothes Wringer, Dr. Golden, consulted. Help appreciated. NS 125 IVF 125 cc/hr
[2016-10-03] MEDS: Potassium Chloride 10 mEq 100 ML IVPB SCH ×4 (20:40→23:30)
[2016-10-04] MEDS: Sodium Chloride 0.9% 1,000 ML IV SCH ×3 (00:50→17:14)
[2016-10-04 05:06] LABS: POTASSIUM 3.8 mmol/L (3.6-5.2)
[2016-10-04 05:09] LABS: CALCIUM 8.3 mg/dl (8.6-10.4)
--- NOTE | 2016-10-04 07:57 | CARD ---
APPROVED REPORT EKG Measurement Heart [id number] <Conclusion> Normal sinus rhythm Normal ECG
[2016-10-04] MEDS: Pantoprazole 40 mg EC Tab PO SCH (09:37)
[2016-10-04] MEDS: Multiple Vitamins Tab PO SCH (09:37)
[2016-10-04 10:03] LABS: BASO # 0.1 K/uL (0.0-0.2); BASO % 0.8 % (0.0-2.0); EOS % 0.4 % (0.0-4.0); HEMATOCRIT 38.8 % (35.0-51.0); LYMPH # 1.8 K/uL (1.0-4.3); LYMPH % 25.1 % (20.0-40.0); MEAN CELL VOLUME 92.4 fL (80.0-94.0); MEAN CORPUSCULAR HEMOGLOBIN 31.6 pg (27.0-31.0); MEAN CORPUSCULAR HGB CONC 34.2 g/dL (33.0-37.0); MEAN PLATELET VOLUME 8.6 fL (7.2-11.7); MONO # 0.5 K/uL (0.0-0.8); MONO % 7.7 % (0.0-10.0); RED CELL DISTRIBUTION WIDTH 15.7 % (11.5-14.5); WHITE BLOOD COUNT 7.1 K/uL (4.8-10.8)
[2016-10-04 10:06] LABS: CHLORIDE 103 mmol/L (98-107); SODIUM 138 mmol/L (132-148)
[2016-10-04 10:07] LABS: POTASSIUM 3.2 mmol/L (3.6-5.2)
[2016-10-04 10:08] LABS: GFR AFRICAN-AMERICAN > 60
[2016-10-04 10:09] LABS: ALB/GLOB RATIO 1.2 (1.0-2.1); ALKALINE PHOSPHATASE 78 U/L (38-126); ALT/SGPT 36 U/L (21-72); AST/SGOT 27 U/L (17-59); BLOOD UREA NITROGEN 10 mg/dL (9-20); CARBON DIOXIDE 23 mmol/L (22-30); GLUCOSE,RANDOM 114 mg/dL (75-110); TOTAL PROTEIN 6.6 g/dL (6.3-8.3)
[2016-10-04 10:10] LABS: MAGNESIUM 1.5 mg/dL (1.6-2.3)
[2016-10-04 10:22] LABS: CHLORIDE URINE 24 mmol/L (32-290)
--- NOTE | 2016-10-04 11:48 | CP.PCM.PN ---
Subjective - Date & Time of Evaluation Date of Evaluation: 10/04/16 Time of Evaluation: 11:00 - Subjective Subjective: More alert & coherent today Objective - Vital Signs/Intake and Output Vital Signs (last 24 hours): Temp Pulse Resp BP Pulse Ox 98 F 86 16 128/89 96 10/04/16 06:00 10/04/16 07:33 10/04/16 06:00 10/04/16 06:00 10/03/16 22:00 - Medications Medications: Current Medications Aspirin (Aspirin Chewable) 81 mg PO DAILY [facility] Last Admin: 10/04/16 09:36 Dose: 81 mg Folic Acid (Folic Acid) 1 mg PO DAILY [facility] Last Admin: 10/04/16 09:37 Dose: 1 mg Sodium Chloride (Sodium Chloride 0.9%) 1,000 mls @ 125 mls/hr IV .Q8H [facility] Last Admin: 10/04/16 09:42 Dose: 125 mls/hr Lorazepam (Ativan) 1 mg IVP Q4 PRN PRN Reason: Seizure activity Last Admin: 10/04/16 09:38 Dose: 1 mg Lorazepam (Ativan) 1 mg PO Q6 [facility] PRN Reason: Taper Stop: 10/08/16 09:28 Last Admin: 10/04/16 10:44 Dose: Not Given Multivitamins (Hexavitamin) 1 tab PO DAILY [facility] Last Admin: 10/04/16 09:37 Dose: 1 tab Ondansetron HCl (Zofran Inj) 4 mg IVP Q4H PRN PRN Reason: Nausea/Vomiting Oxycodone/Acetaminophen (Percocet 5/325 Mg Tab) 1 tab PO Q6H PRN PRN Reason: Pain, moderate (4-7) Stop: 10/06/16 14:33 Last Admin: 10/03/16 14:55 Dose: 1 tab Pantoprazole Sodium (Protonix Ec Tab) 40 mg PO DAILY [facility] Last Admin: 10/04/16 09:37 Dose: 40 mg Rosuvastatin Calcium (Crestor) 5 mg PO HS [facility] Last Admin: 10/03/16 21:39 Dose: 5 mg Sertraline HCl (Zoloft) 50 mg PO DAILY [facility] Thiamine HCl (Vitamin B1 Tab) 100 mg PO DAILY [facility] Last Admin: 10/04/16 09:37 Dose: 100 mg Tramadol HCl (Ultram) 25 mg PO TID PRN PRN Reason: Pain, Mild (1-3) Last Admin: 10/03/16 18:08 Dose: 25 mg - Labs Labs: 10/04/16 09:57 10/04/16 09:57 PT 12.1 SECONDS (9.7-12.2) 10/02/16 20:40 INR 1.1 10/02/16 20:40 APTT 32 SECONDS (21-34) 10/02/16 20:40 - Respiratory Exam Additional comments: Lungs are clear - Cardiovascular Exam Cardiovascular Exam: REGULAR RHYTHM - Extremities Exam Additional comments: No edema or cyanosis Assessment and Plan - Assessment and Plan (Free Text) Assessment: Acute kidney injury resolved Low urine Sodium & Chloride suggest dehydration & volume depletion Electrolyte abnormalities, K+ is still low Hypomagnesemia & hypophosphatemia secondary to alcohol ism Plan: Continue to monitor renal function Supplement Mg, Phos, K+
--- NOTE | 2016-10-04 14:39 | PCM.PYCHPN ---
Psychiatric Progress Note - Psychiatric Progress Note Patient seen today, length of contact: 18 min Patient Chief Complaint: "I'm feeling depressed " Problems Identified/Issues Discussed: The pt seen, chart reviewed, case discussed. Today, pt states that he is feeling depressed and at times he gets feelings of hopelessness and helplessness. He reports poor sleep and poor appetite. He is feeling anxious. He denies any chest pain. Pt reports improvement in his withdrawal symptoms but still reports anxiety, insomnia, headaches and sweating. Pt states that his plan is to go to rehab after discharge. Aftercare discussed, support and psychoeducation given. Medical Problems: Hypertension Medication Change: Yes (Lorazepam taper, Zoloft, Potassium Phos/Sodium Phos, Percocet) Medical Record Reviewed: Yes Mental Status Examination - Cognitive Function Orientation: Person, Place, Situation, Time Memory: Intact Attention: Poor Concentration: Poor Association: WNL Fund of Knowledge: Poor - Mood Mood: Depressed, Anxious - Affect Affect: Constricted, Depressed - Speech Speech: Appropriate, Soft - Formal Thought Process Formal Thought Process: No Impairment - Suicidal Ideation Suicidal Ideation: No - Homicidal Ideation Homicidal Ideation: No Goal/Treatment Plan - Goal/Treatment Plan Need for Continued Stay: Discharge may exacerbated symptoms, Severe functional impairment Progress Toward Problem(s) and Goals/Treatment Plan: Major depressive disorder recurrent moderate CBT Psychoeducation Supportive therapy, indivdual therapy Zoloft 50 mg PO Daily Alcohol use disorder severe As needed meds Monitor signs and symptoms ID/CBT Attend groups and activities Support and Psychoeducation Refer to program Alcohol withdrawal Lorazepam taper Folic acid 1 mg PO daily Multivitamins 1 tab PO daily Thiamine Hcl 100 mg PO daily CBT Supportive therapy, individual therapy Monitor signs and symptoms Hypophosphatemia- Potassium Phos/Sodium Phos 1 pkt PO daily - Smoking Cessation Smoking Cessation Initiated: No
--- NOTE | 2016-10-04 15:52 | CP.PCM.PN ---
<Eleonora Mcneal - Last Filed: 10/04/16 15:48> Subjective - Date & Time of Evaluation Date of Evaluation: 10/04/16 Time of Evaluation: 07:50 - Subjective Subjective: Internal medicine progress note for Dr. Kwong- Eleonora Mcneal, PGY-1 Pt S & E at bedside. Pt currently sedated, no arousable to verbal or tactile stimuli Objective - Vital Signs/Intake and Output Vital Signs (last 24 hours): Temp Pulse Resp BP Pulse Ox 98.0 F 97 H 16 128/89 96 10/04/16 14:00 10/04/16 11:00 10/04/16 06:00 10/04/16 06:00 10/03/16 22:00 - Medications Medications: Current Medications Aspirin (Aspirin Chewable) 81 mg PO DAILY [facility] Last Admin: 10/04/16 09:36 Dose: 81 mg Folic Acid (Folic Acid) 1 mg PO DAILY [facility] Last Admin: 10/04/16 09:37 Dose: 1 mg Sodium Chloride (Sodium Chloride 0.9%) 1,000 mls @ 125 mls/hr IV .Q8H [facility] Last Admin: 10/04/16 09:42 Dose: 125 mls/hr Lorazepam (Ativan) 1 mg IVP Q4 PRN PRN Reason: Seizure activity Last Admin: 10/04/16 09:38 Dose: 1 mg Lorazepam (Ativan) 1 mg PO Q12 WILFRID PRN Reason: Taper Stop: 10/09/16 21:59 Multivitamins (Hexavitamin) 1 tab PO DAILY [facility] Last Admin: 10/04/16 09:37 Dose: 1 tab Ondansetron HCl (Zofran Inj) 4 mg IVP Q4H PRN PRN Reason: Nausea/Vomiting Oxycodone/Acetaminophen (Percocet 5/325 Mg Tab) 1 tab PO Q6H PRN PRN Reason: Pain, moderate (4-7) Stop: 10/06/16 14:33 Last Admin: 10/03/16 14:55 Dose: 1 tab Pantoprazole Sodium (Protonix Ec Tab) 40 mg PO DAILY [facility] Last Admin: 10/04/16 09:37 Dose: 40 mg Rosuvastatin Calcium (Crestor) 5 mg PO HS [facility] Last Admin: 10/03/16 21:39 Dose: 5 mg Sertraline HCl (Zoloft) 50 mg PO DAILY [facility] Last Admin: 10/04/16 12:29 Dose: 50 mg Thiamine HCl (Vitamin B1 Tab) 100 mg PO DAILY [facility] Last Admin: 10/04/16 09:37 Dose: 100 mg Tramadol HCl (Ultram) 25 mg PO TID PRN PRN Reason: Pain, Mild (1-3) Last Admin: 10/03/16 18:08 Dose: 25 mg - Labs Labs: 10/04/16 09:57 10/04/16 09:57 PT 12.1 SECONDS (9.7-12.2) 10/02/16 20:40 INR 1.1 10/02/16 20:40 APTT 32 SECONDS (21-34) 10/02/16 20:40 - Constitutional Appears: Non-toxic, No Acute Distress - Head Exam Head Exam: ATRAUMATIC, NORMAL INSPECTION, NORMOCEPHALIC - Respiratory Exam Respiratory Exam: Clear to Ausculation Bilateral, NORMAL BREATHING PATTERN - Cardiovascular Exam Cardiovascular Exam: REGULAR RHYTHM, +S1, +S2. absent: Murmur - GI/Abdominal Exam GI & Abdominal Exam: Soft, Normal Bowel Sounds. absent: Distended (obese) - Extremities Exam Extremities Exam: Normal Capillary Refill, Normal Inspection. absent: Joint Swelling, Pedal Edema - Neurological Exam Neurological Exam: absent: Alert, Awake Additional comments: sedated - Psychiatric Exam Additional comments: sedated, unarousable to verbal or tactile stimuli - Skin Skin Exam: Dry, Intact, Normal Color, Warm Assessment and Plan - Assessment and Plan (Free Text) Assessment: SIRS- resolving WBC - 7.1 from 10.9, trending down Tachycardic resolved, HR 89 CXR - mild venous congestion Afebrile over last 24H Chest Pain r/o ACS: EKG - NSR Troponins negative x 3 CXR - mild venous congestion Ultram prn for pain Percocet prn for pain On ASA 81mg daily Cont Crestor 5mg HS Cardio consulted- SAURABH Chamberlain recmahad Hypokalemia/Hypomagnesemia/Hypophosphatemia K 3.2 Mg 1.5 Phos 2.0 Replaced 40 mEq KCl Started Neutra-Phos Monitor Alcohol Withdrawal: Serum alcohol - 52 Ativan 1 mg IV Q8h PRN Ativan 2 mg po Q12H PRN Banana Bag IV Folic acid 1 mg po qd Thiamine 100 mg po qd Head CT - generalized atrophy, bilateral subdural hygromas (please see full report) Abd/Bladder u/s: Fatty liver Multivitamins 1 tab po qd NS 125 IVF 125 cc/hr Psychiatrist, Dr. Heath, consulted. Help appreciated. Alcohol cessation counseling Zofran 4 mg Iv q4h prn for nausea Psych recs: As needed meds, Monitor signs and symptoms, [place]/CBT, Attend groups and activities, Support and Psychoeducation, Refer to program For Alcohol withdrawal, Lorazepam taper, Folic acid 1 mg PO daily, Multivitamins 1 tab PO daily, Thiamine Hcl 100 mg PO daily, CBT, Supportive therapy, individual therapy, Monitor signs and symptoms Major depressive disorder recurrent moderate Psych recs: CBT, Psychoeducation, Supportive therapy, indivdual therapy, Start Zoloft 50 mg PO Daily Acute Kidney Injury- resolved: Creatinine 4.5 initially, 1.3 today NS 125 IVF 125 cc/hr Nephro recs: Acute kidney injury resolved- Low urine Sodium & Chloride suggest dehydration & volume depletion, Electrolyte abnormalities, K+ is still low Hypomagnesemia & hypophosphatemia secondary to alcoholism Plan: Continue to monitor renal function, Supplement Mg, Phos, K+ Prophylactic Measures: DVT: SCDs GI: Protonix 40 mg IV qd Dispo Ok to D/c tele Monitor DW attending <Allen Kwong - Last Filed: 11/07/16 12:36> Objective - Vital Signs/Intake and Output Vital Signs (last 24 hours): Temp Pulse Resp BP Pulse Ox 98.5 F 76 20 157/99 H 96 10/05/16 15:00 10/05/16 15:00 10/05/16 15:00 10/05/16 15:00 10/05/16 15:00 - Labs Labs: 10/04/16 09:57 10/04/16 09:57 PT 12.1 SECONDS (9.7-12.2) 10/02/16 20:40 INR 1.1 10/02/16 20:40 APTT 32 SECONDS (21-34) 10/02/16 20:40 Attending/Attestation - Attestation I have personally seen and examined this patient.: Yes I have fully participated in the care of the patient.: Yes I have reviewed all pertinent clinical information, including history, physical exam and plan: Yes Notes (Text): Patient seen and examined with the resident. Agree with the resident's evaluation, assessment and plan. SIRS- resolving WBC - 7.1 from 10.9, trending down Tachycardic resolved, HR 89 CXR - mild venous congestion Afebrile over last 24H Chest Pain r/o ACS: EKG - NSR Troponins negative x 3 CXR - mild venous congestion Ultram prn for pain Percocet prn for pain On ASA 81mg daily Cont Crestor 5mg HS Cardio consulted- SAURABH Chamberlain Hypokalemia/Hypomagnesemia/Hypophosphatemia K 3.2 Mg 1.5 Phos 2.0 Replaced 40 mEq KCl Started Neutra-Phos Monitor
[2016-10-04] MEDS ORDERED: Potassium Chloride 20 mEq ER Tab PO ONE (16:00)
[2016-10-04] MEDS: Potassium & Sodium Phosphate PO SCH (17:14)
[2016-10-04 19:06] VITALS: RESP 20
[2016-10-05] MEDS: Sodium Chloride 0.9% 1,000 ML IV SCH ×2 (02:37→11:55)
[2016-10-05 07:52] VITALS: O2SAT 96
[2016-10-05] MEDS: Pantoprazole 40 mg EC Tab PO SCH (09:20)
[2016-10-05] MEDS: Multiple Vitamins Tab PO SCH (09:20)
[2016-10-05] MEDS: Potassium & Sodium Phosphate PO SCH (09:22)
--- NOTE | 2016-10-05 12:27 | PCM.PYCHPN ---
Psychiatric Progress Note - Psychiatric Progress Note Patient seen today, length of contact: 15 min Patient Chief Complaint: "I'm feeling much better " Problems Identified/Issues Discussed: The pt seen, chart reviewed, case discussed. Today, pt states that he is feeling much better. He denies any depressive symptoms today and denies any withdrawal symptoms. Pt states that his plan is to go to rehab after discharge. Aftercare discussed, support and psychoeducation given. Medical Problems: Hypertension Medication Change: Yes (Lorazepam taper, Zoloft, Potassium Phos/Sodium Phos, Percocet) Medical Record Reviewed: Yes Mental Status Examination - Cognitive Function Orientation: Person, Place, Situation, Time Memory: Intact Attention: WNL Concentration: WNL Association: WNL Fund of Knowledge: WNL - Mood Mood: Anxious - Affect Affect: Constricted - Speech Speech: Appropriate - Formal Thought Process Formal Thought Process: No Impairment - Suicidal Ideation Suicidal Ideation: No - Homicidal Ideation Homicidal Ideation: No Goal/Treatment Plan - Goal/Treatment Plan Need for Continued Stay: Failed transitioning Progress Toward Problem(s) and Goals/Treatment Plan: Major depressive disorder recurrent moderate CBT Psychoeducation Supportive therapy, indivdual therapy Zoloft 50 mg PO Daily Alcohol use disorder severe As needed meds Monitor signs and symptoms [place]/CBT Attend groups and activities Support and Psychoeducation Refer to program Alcohol withdrawal Lorazepam taper Folic acid 1 mg PO daily Multivitamins 1 tab PO daily Thiamine Hcl 100 mg PO daily CBT Supportive therapy, individual therapy Monitor signs and symptoms Hypophosphatemia- Potassium Phos/Sodium Phos 1 pkt PO daily
--- NOTE | 2016-10-05 13:49 | CP.PCM.DIS ---
<Mcneal,Eleonora - Last Filed: 10/05/16 15:02> Provider - Provider Date of Admission: 10/02/16 22:48 Attending physician: Mati Siegel DO Primary care physician: None Consults: Cardio-Bulmaro Psych-Kumar Time Spent in preparation of Discharge (in minutes): 60 Hospital Course - Lab Results Lab Results: Most Recent Lab Values WBC 7.1 K/uL (4.8-10.8) 10/04/16 09:57 RBC 4.20 Mil/uL (4.40-5.90) L 10/04/16 09:57 Hgb 13.3 g/dL (12.0-18.0) 10/04/16 09:57 Hct 38.8 % (35.0-51.0) 10/04/16 09:57 MCV 92.4 fL (80.0-94.0) 10/04/16 09:57 MCH 31.6 pg (27.0-31.0) H 10/04/16 09:57 MCHC 34.2 g/dL (33.0-37.0) 10/04/16 09:57 RDW 15.7 % (11.5-14.5) H 10/04/16 09:57 Plt Count 196 K/uL (130-400) 10/04/16 09:57 MPV 8.6 fL (7.2-11.7) 10/04/16 09:57 Neut % (Auto) 66.0 % (50.0-75.0) 10/04/16 09:57 Lymph % (Auto) 25.1 % (20.0-40.0) 10/04/16 09:57 Sublette % (Auto) 7.7 % (0.0-10.0) 10/04/16 09:57 Eos % (Auto) 0.4 % (0.0-4.0) 10/04/16 09:57 Baso % (Auto) 0.8 % (0.0-2.0) 10/04/16 09:57 Neut # 4.7 K/uL (1.8-7.0) 10/04/16 09:57 Lymph # 1.8 K/uL (1.0-4.3) 10/04/16 09:57 Sublette # 0.5 K/uL (0.0-0.8) 10/04/16 09:57 Eos # 0.0 K/uL (0.0-0.7) 10/04/16 09:57 Baso # 0.1 K/uL (0.0-0.2) 10/04/16 09:57 PT 12.1 SECONDS (9.7-12.2) 10/02/16 20:40 INR 1.1 10/02/16 20:40 APTT 32 SECONDS (21-34) 10/02/16 20:40 Sodium 138 mmol/L (132-148) 10/04/16 09:57 Potassium 3.2 mmol/L (3.6-5.2) L 10/04/16 09:57 Chloride 103 mmol/L (98-107) 10/04/16 09:57 Carbon Dioxide 23 mmol/L (22-30) 10/04/16 09:57 Anion Gap 16 (10-20) 10/04/16 09:57 BUN 10 mg/dL (9-20) 10/04/16 09:57 Creatinine 1.3 MG/DL (0.8-1.5) 10/04/16 09:57 Est GFR ( Amer) > 60 10/04/16 09:57 Est GFR (Non-Af Amer) 58 10/04/16 09:57 Random Glucose 114 mg/dL (75-110) H 10/04/16 09:57 Hemoglobin A1c 5.9 % (4.2-6.5) 10/03/16 05:49 Serum Osmolality 329 mosm/kg (272-300) H 10/03/16 05:49 Calcium 8.0 mg/dl (8.6-10.4) L 10/04/16 09:57 Phosphorus 2.0 mg/dL (2.5-4.5) L 10/04/16 09:57 Magnesium 1.5 mg/dL (1.6-2.3) L 10/04/16 09:57 Total Bilirubin 1.0 mg/dL (0.2-1.3) 10/04/16 09:57 AST 27 U/L (17-59) 10/04/16 09:57 ALT 36 U/L (21-72) 10/04/16 09:57 Alkaline Phosphatase 78 U/L (38-126) 10/04/16 09:57 Total Creatine Kinase 193 U/L (55-170) H 10/03/16 12:19 CK-MB (Mass) 1.67 ng/mL (0.0-3.38) 10/03/16 12:19 Troponin I < 0.0120 ng/mL (0.00-0.120) 10/02/16 20:40 Troponin I, Quant < 0.0120 ng/mL (0.00-0.120) 10/03/16 12:19 Total Protein 6.6 g/dL (6.3-8.3) 10/04/16 09:57 Albumin 3.6 g/dL (3.5-5.0) 10/04/16 09:57 Globulin 3.0 gm/dL (2.2-3.9) 10/04/16 09:57 Albumin/Globulin Ratio 1.2 (1.0-2.1) 10/04/16 09:57 Triglycerides 83 mg/dL (0-149) 10/03/16 05:49 Cholesterol 149 mg/dL (0-199) 10/03/16 05:49 LDL Cholesterol Direct 67 mg/dL (0-129) 10/03/16 05:49 HDL Cholesterol 63 mg/dL (30-70) 10/03/16 05:49 Lipase 191 U/L (23-300) 10/03/16 05:49 Thyroxine (T4) 6.32 ug/dL (5.5-11.0) 10/03/16 05:49 TSH 3rd Generation 0.69 mIU/L (0.46-4.68) 10/03/16 05:49 Urine Color Rosetta (YELLOW) 10/02/16 21:56 Urine Clarity Hazy (Clear) 10/02/16 21:56 Urine pH 5.0 (5.0-8.0) 10/02/16 21:56 Ur Specific Belle 1.016 (1.003-1.030) 10/02/16 21:56 Urine Protein 1+ mg/dL (NEGATIVE) H 10/02/16 21:56 Urine Glucose (UA) Normal mg/dL (Normal) 10/02/16 21:56 Urine Ketones Trace mg/dL (NEGATIVE) 10/02/16 21:56 Urine Blood Negative (NEGATIVE) 10/02/16 21:56 Urine Nitrate Negative (NEGATIVE) 10/02/16 21:56 Urine Bilirubin Negative (NEGATIVE) 10/02/16 21:56 Urine Urobilinogen Normal mg/dL (0.2-1.0) 10/02/16 21:56 Ur Leukocyte Esterase Neg Gladis/uL (Negative) 10/02/16 21:56 Urine WBC (Auto) 7 /hpf (0-5) H 10/02/16 21:56 Urine RBC (Auto) 5 /hpf (0-3) H 10/02/16 21:56 Ur Squamous Epith Cells 7 /hpf (0-5) H 10/02/16 21:56 Urine Bacteria Occ (<OCC) H 10/02/16 21:56 Hyaline Casts >20 /lpf (0-2) H 10/02/16 21:56 Urine Osmolality 273 mosm/kg (300-1000) L 10/03/16 12:19 Ur Random Creatinine 122.1 mg/dL 10/03/16 12:19 Ur Random Sodium 16 mmol/L 10/03/16 12:19 Urine Collection Time 24 HRS 10/04/16 11:16 Urine Total Volume 5600 mL 10/04/16 11:16 Urine Chloride 24 mmol/L (32-290) L 10/03/16 12:19 Ur Protein 24 Hr Calc 1064.0 mg/24hr (42-225) H 10/04/16 11:16 Urine Opiates Screen Negative (NEGATIVE) 10/02/16 21:56 Urine Methadone Screen Negative (NEGATIVE) 10/02/16 21:56 Ur Barbiturates Screen Negative (NEGATIVE) 10/02/16 21:56 Ur Phencyclidine Scrn Negative (NEGATIVE) 10/02/16 21:56 Ur Amphetamines Screen Negative (NEGATIVE) 10/02/16 21:56 U Benzodiazepines Scrn Negative (NEGATIVE) 10/02/16 21:56 U Oth Cocaine Metabols Negative (NEGATIVE) 10/02/16 21:56 U Cannabinoids Screen Negative (NEGATIVE) 10/02/16 21:56 Alcohol, Quantitative 52 mg/dl (0-10) H 10/02/16 20:40 - Hospital Course Hospital Course: Patient is a 51 year old male with past medical history of HTN and alcohol abuse who presents to the ED with complaint of chest pain, nausea, and vomiting. Patient states that chest pain began this morning and was squeezing in nature. Patient denies ever having this sensation before. Patient denies radiation and states that the pain did resolve on its own. Patient reports headache and diaphoresis at the time of the chest discomfort. Patient states that he does on occasion get chest pain and dizziness when he does not take his blood pressure medication. Patient states he does not think he took his blood pressure medication today. Patient denies abdominal pain but admits to vomiting several times a day for the past 3-4 days. He has also had decreased oral intake and decreased appetite for 3-4 days. Patient has a history of alcohol abuse but had quit drinking for approximately one year. Per family, the patient began drinking again 3 months ago when his son at age 30 of a seizure. Family states they have been trying to get to see a family therapist but have not been able to find one. Family states patient has been noticeably depressed. Per family, the patient has been drinking 10 beers per day in addition to small bottles of vodka or whiskey. Patient's last drink was the morning of admission. Pt admitted to hospital for ETOH intoxication, placed on CIWA protocol, Ativan taper and electrolyte replacement PRN. Pt monitored for ETOH withdrawal symtptoms. Pt seen/evaluated by psych with recs for outpatient rehab, alcohol withdrawal medications, depression medications. U/S of abd with fatty liver. CT head with generalized atrophy, B/L subdural hygromas. Pt seen/evaluated by cardiology with recs for serial cardiac enzymes , outpatient stress test. ROMIs neg x 3. Cardiac work up negative. Pt seen/ evaluated by nephrology for acute kidney injury with recs for renal U/S, urine spot lytes, supplement K+ PRN, IVF. Pt stabilized, ready for discharge home as per Dr. Kwong and Dr. Heath. Pt cleared by PT. Diagnoses ETOH intoxication ETOH Abuse HTN Major depressive disorder Chest pain SIRS Hypokalemia Acute kidney injury Please see EMR for full details of hospitalization. - Date & Time of H&P Date of H&P: 10/03/16 Time of H&P: 00:37 Discharge Exam - Head Exam Head Exam: ATRAUMATIC, NORMAL INSPECTION, NORMOCEPHALIC - Eye Exam Eye Exam: EOMI, Normal appearance, PERRL Pupil Exam: NORMAL ACCOMODATION, PERRL - ENT Exam ENT Exam: Mucous Membranes Moist, Normal Exam - Neck Exam Neck exam: Full Rom, Normal Inspection - Respiratory Exam Respiratory Exam: Clear to PA & Lateral, NORMAL BREATHING PATTERN, UNREMARKABLE. absent: Rales, Rhonchi, Wheezes, Respiratory Distress - Cardiovascular Exam Cardiovascular Exam: REGULAR RHYTHM, +S1, +S2 - GI/Abdominal Exam GI & Abdominal Exam: Normal Bowel Sounds, Soft, Unremarkable. absent: Tenderness - Extremities Exam Extremities exam: normal inspection - Back Exam Back exam: FULL ROM, NORMAL INSPECTION - Neurological Exam Neurological exam: Alert, CN II-XII Intact, Oriented x3 - Psychiatric Exam Psychiatric exam: Normal Affect, Normal Mood - Skin Skin Exam: Dry, Intact, Normal Color, Warm Discharge Plan - Follow Up Plan Condition: STABLE Disposition: HOME/ ROUTINE Instructions: Sertraline (By mouth), Rosuvastatin (By mouth), Chest Pain (DC), Abuse of Alcohol (DC), Impaired Kidney Function (DC) Additional Instructions: Patient is to be discharged home as per Dr. Kwong and Dr. Heath and physical therapy. Please follow up with your primary care physician within 1 week after discharge from hospitalization. If you do have not a primary care physician, please establish care with the [facility]. Please refrain from drinking alcohol. Please take all prescriptions as written. If you have a recurrence of symptoms, please return to hospital. Referrals: Aria Matthews MD [Staff Provider] - <Allen Kwong - Last Filed: 11/07/16 12:53> Provider - Provider Date of Admission: 10/02/16 22:48 Attending physician: Mati Siegel, DO Hospital Course - Lab Results Lab Results: Micro Results 10/04/16 21:52 Nose MRSA Culture - Final MRSA DETECTED Most Recent Lab Values WBC 7.1 K/uL (4.8-10.8) 10/04/16 09:57 RBC 4.20 Mil/uL (4.40-5.90) L 10/04/16 09:57 Hgb 13.3 g/dL (12.0-18.0) 10/04/16 09:57 Hct 38.8 % (35.0-51.0) 10/04/16 09:57 MCV 92.4 fL (80.0-94.0) 10/04/16 09:57 MCH 31.6 pg (27.0-31.0) H 10/04/16 09:57 MCHC 34.2 g/dL (33.0-37.0) 10/04/16 09:57 RDW 15.7 % (11.5-14.5) H 10/04/16 09:57 Plt Count 196 K/uL (130-400) 10/04/16 09:57 MPV 8.6 fL (7.2-11.7) 10/04/16 09:57 Neut % (Auto) 66.0 % (50.0-75.0) 10/04/16 09:57 Lymph % (Auto) 25.1 % (20.0-40.0) 10/04/16 09:57 Sublette % (Auto) 7.7 % (0.0-10.0) 10/04/16 09:57 Eos % (Auto) 0.4 % (0.0-4.0) 10/04/16 09:57 Baso % (Auto) 0.8 % (0.0-2.0) 10/04/16 09:57 Neut # 4.7 K/uL (1.8-7.0) 10/04/16 09:57 Lymph # 1.8 K/uL (1.0-4.3) 10/04/16 09:57 Sublette # 0.5 K/uL (0.0-0.8) 10/04/16 09:57 Eos # 0.0 K/uL (0.0-0.7) 10/04/16 09:57 Baso # 0.1 K/uL (0.0-0.2) 10/04/16 09:57 PT 12.1 SECONDS (9.7-12.2) 10/02/16 20:40 INR 1.1 10/02/16 20:40 APTT 32 SECONDS (21-34) 10/02/16 20:40 Sodium 138 mmol/L (132-148) 10/04/16 09:57 Potassium 3.2 mmol/L (3.6-5.2) L 10/04/16 09:57 Chloride 103 mmol/L (98-107) 10/04/16 09:57 Carbon Dioxide 23 mmol/L (22-30) 10/04/16 09:57 Anion Gap 16 (10-20) 10/04/16 09:57 BUN 10 mg/dL (9-20) 10/04/16 09:57 Creatinine 1.3 MG/DL (0.8-1.5) 10/04/16 09:57 Est GFR ( Amer) > 60 10/04/16 09:57 Est GFR (Non-Af Amer) 58 10/04/16 09:57 Random Glucose 114 mg/dL (75-110) H 10/04/16 09:57 Hemoglobin A1c 5.9 % (4.2-6.5) 10/03/16 05:49 Serum Osmolality 329 mosm/kg (272-300) H 10/03/16 05:49 Calcium 8.0 mg/dl (8.6-10.4) L 10/04/16 09:57 Phosphorus 2.0 mg/dL (2.5-4.5) L 10/04/16 09:57 Magnesium 1.5 mg/dL (1.6-2.3) L 10/04/16 09:57 Total Bilirubin 1.0 mg/dL (0.2-1.3) 10/04/16 09:57 AST 27 U/L (17-59) 10/04/16 09:57 ALT 36 U/L (21-72) 10/04/16 09:57 Alkaline Phosphatase 78 U/L (38-126) 10/04/16 09:57 Total Creatine Kinase 193 U/L (55-170) H 10/03/16 12:19 CK-MB (Mass) 1.67 ng/mL (0.0-3.38) 10/03/16 12:19 Troponin I < 0.0120 ng/mL (0.00-0.120) 10/02/16 20:40 Troponin I, Quant < 0.0120 ng/mL (0.00-0.120) 10/03/16 12:19 Total Protein 6.6 g/dL (6.3-8.3) 10/04/16 09:57 Albumin 3.6 g/dL (3.5-5.0) 10/04/16 09:57 Globulin 3.0 gm/dL (2.2-3.9) 10/04/16 09:57 Albumin/Globulin Ratio 1.2 (1.0-2.1) 10/04/16 09:57 Triglycerides 83 mg/dL (0-149) 10/03/16 05:49 Cholesterol 149 mg/dL (0-199) 10/03/16 05:49 LDL Cholesterol Direct 67 mg/dL (0-129) 10/03/16 05:49 HDL Cholesterol 63 mg/dL (30-70) 10/03/16 05:49 Lipase 191 U/L (23-300) 10/03/16 05:49 Thyroxine (T4) 6.32 ug/dL (5.5-11.0) 10/03/16 05:49 TSH 3rd Generation 0.69 mIU/L (0.46-4.68) 10/03/16 05:49 Urine Color Rosetta (YELLOW) 10/02/16 21:56 Urine Clarity Hazy (Clear) 10/02/16 21:56 Urine pH 5.0 (5.0-8.0) 10/02/16 21:56 Ur Specific Belle 1.016 (1.003-1.030) 10/02/16 21:56 Urine Protein 1+ mg/dL (NEGATIVE) H 10/02/16 21:56 Urine Glucose (UA) Normal mg/dL (Normal) 10/02/16 21:56 Urine Ketones Trace mg/dL (NEGATIVE) 10/02/16 21:56 Urine Blood Negative (NEGATIVE) 10/02/16 21:56 Urine Nitrate Negative (NEGATIVE) 10/02/16 21:56 Urine Bilirubin Negative (NEGATIVE) 10/02/16 21:56 Urine Urobilinogen Normal mg/dL (0.2-1.0) 10/02/16 21:56 Ur Leukocyte Esterase Neg Gladis/uL (Negative) 10/02/16 21:56 Urine WBC (Auto) 7 /hpf (0-5) H 10/02/16 21:56 Urine RBC (Auto) 5 /hpf (0-3) H 10/02/16 21:56 Ur Squamous Epith Cells 7 /hpf (0-5) H 10/02/16 21:56 Urine Bacteria Occ (<OCC) H 10/02/16 21:56 Hyaline Casts >20 /lpf (0-2) H 10/02/16 21:56 Urine Osmolality 273 mosm/kg (300-1000) L 10/03/16 12:19 Ur Random Creatinine 122.1 mg/dL 10/03/16 12:19 Ur Random Sodium 16 mmol/L 10/03/16 12:19 Urine Collection Time 24 HRS 10/04/16 11:16 Urine Total Volume 5600 mL 10/04/16 11:16 Urine Chloride 24 mmol/L (32-290) L 10/03/16 12:19 Ur Protein 24 Hr Calc 1064.0 mg/24hr (42-225) H 10/04/16 11:16 Urine Opiates Screen Negative (NEGATIVE) 10/02/16 21:56 Urine Methadone Screen Negative (NEGATIVE) 10/02/16 21:56 Ur Barbiturates Screen Negative (NEGATIVE) 10/02/16 21:56 Ur Phencyclidine Scrn Negative (NEGATIVE) 10/02/16 21:56 Ur Amphetamines Screen Negative (NEGATIVE) 10/02/16 21:56 U Benzodiazepines Scrn Negative (NEGATIVE) 10/02/16 21:56 U Oth Cocaine Metabols Negative (NEGATIVE) 10/02/16 21:56 U Cannabinoids Screen Negative (NEGATIVE) 10/02/16 21:56 Alcohol, Quantitative 52 mg/dl (0-10) H 10/02/16 20:40 Attending/Attestation - Attestation I have personally seen and examined this patient.: Yes I have fully participated in the care of the patient.: Yes I have reviewed all pertinent clinical information, including history, physical exam and plan: Yes Notes (Text): Patient seen and examined with the resident. Agree with the resident's evaluation, assessment and plan. Pt admitted to hospital for ETOH intoxication, placed on CIWA protocol, Ativan taper and electrolyte replacement PRN. Pt monitored for ETOH withdrawal symtptoms. Pt seen/evaluated by psych with recs for outpatient rehab, alcohol withdrawal medications, depression medications. U/S of abd with fatty liver. CT head with generalized atrophy, B/L subdural hygromas. Pt seen/evaluated by cardiology with recs for serial cardiac enzymes , outpatient stress test. ROMIs neg x 3. Cardiac work up negative. Pt seen/ evaluated by nephrology for acute kidney injury with recs for renal U/S, urine spot lytes, supplement K+ PRN, IVF. Pt stabilized, ready for discharge home
[2016-10-05 16:20] VITALS: PULSE 76; TEMP 98.5
[2016-10-05 16:27] VITALS: BP 157/99
--- NOTE | 2016-10-05 16:47 | CP.PCM.PN ---
Subjective - Date & Time of Evaluation Date of Evaluation: 10/05/16 Time of Evaluation: 04:15 - Subjective Subjective: Feels better. Comfortable in bed Objective - Vital Signs/Intake and Output Vital Signs (last 24 hours): Temp Pulse Resp BP Pulse Ox 98.5 F 76 20 157/99 H 96 10/05/16 15:00 10/05/16 15:00 10/05/16 15:00 10/05/16 15:00 10/05/16 15:00 Intake and Output: 10/05/16 10/05/16 06:59 18:59 Intake Total 1240 1300 Output Total 1000 1000 Balance 240 300 - Medications Medications: Current Medications Aspirin (Aspirin Chewable) 81 mg PO DAILY [facility] Last Admin: 10/05/16 09:20 Dose: 81 mg Folic Acid (Folic Acid) 1 mg PO DAILY [facility] Last Admin: 10/05/16 09:20 Dose: 1 mg Sodium Chloride (Sodium Chloride 0.9%) 1,000 mls @ 125 mls/hr IV .Q8H [facility] Last Admin: 10/05/16 11:55 Dose: 125 mls/hr Lorazepam (Ativan) 2 mg PO Q8 PRN PRN Reason: Agitation Multivitamins (Hexavitamin) 1 tab PO DAILY [facility] Last Admin: 10/05/16 09:20 Dose: 1 tab Ondansetron HCl (Zofran Inj) 4 mg IVP Q4H PRN PRN Reason: Nausea/Vomiting Oxycodone/Acetaminophen (Percocet 5/325 Mg Tab) 1 tab PO Q6H PRN PRN Reason: Pain, moderate (4-7) Stop: 10/06/16 14:33 Last Admin: 10/03/16 14:55 Dose: 1 tab Pantoprazole Sodium (Protonix Ec Tab) 40 mg PO DAILY [facility] Last Admin: 10/05/16 09:20 Dose: 40 mg Potassium Phos/Sodium Phos (Neutra-Phos) 1 pkt PO DAILY [facility] Last Admin: 10/05/16 09:22 Dose: 1 pkt Rosuvastatin Calcium (Crestor) 5 mg PO HS [facility] Last Admin: 10/04/16 21:12 Dose: 5 mg Sertraline HCl (Zoloft) 50 mg PO DAILY [facility] Last Admin: 10/05/16 11:56 Dose: 50 mg Thiamine HCl (Vitamin B1 Tab) 100 mg PO DAILY [facility] Last Admin: 10/05/16 11:54 Dose: 100 mg Tramadol HCl (Ultram) 25 mg PO TID PRN PRN Reason: Pain, Mild (1-3) Last Admin: 10/03/16 18:08 Dose: 25 mg - Labs Labs: 10/04/16 09:57 10/04/16 09:57 PT 12.1 SECONDS (9.7-12.2) 10/02/16 20:40 INR 1.1 10/02/16 20:40 APTT 32 SECONDS (21-34) 10/02/16 20:40 - Respiratory Exam Additional comments: Lungs clear - Cardiovascular Exam Cardiovascular Exam: REGULAR RHYTHM - Extremities Exam Additional comments: No edema Assessment and Plan - Assessment and Plan (Free Text) Assessment: HARPAL resolves Mg & Phos are still low Alcoholism Plan: Mg & Phos supplementd Continue to monitor renal function
--- NOTE | 2016-10-06 08:35 | CARD ---
APPROVED REPORT EKG Measurement Heart [id number] <Conclusion> Normal sinus rhythm Normal ECG
--- NOTE | 2016-10-10 10:28 | CARD ---
APPROVED REPORT EXAM: Two-dimensional and M-mode echocardiogram with Doppler and color Doppler. Other Information Quality : AverageRhythm : NSR INDICATION Chest Pain RISK FACTORS Hypertension Hyperlipidemia M-Mode DIMENSIONS RVDd1.91 (2.1-3.2cm)Left Atrium (MM)4.41 (2.5-4.0cm) IVSd0.90 (0.7-1.1cm)Aortic Root3.51 (2.2-3.7cm) LVDd5.74 (4.0-5.6cm)Aortic Cusp Exc.2.30 (1.5-2.0cm) PWd1.13 (0.7-1.1cm)FS (%) 49 % LVDs2.93 (2.0-3.8cm)LVEF (%)80 (>50%) Aortic Valve AoV Peak Cqrodqbm639.0cm/Soha Peak GR.6mmHg Mitral Valve MV E Pqdgdyuj17.7cm/sMV A Kecvevjg76.1cm/sE/A ratio0.9 TDI E/Lateral E'0.0E/Medial E'0.0 Tricuspid Valve TR Peak Hajceuzd124ey/sTR Peak Gr.[id number] LEFT VENTRICLE The left ventricle is normal size. There is mild to moderate concentric left ventricular hypertrophy. The left ventricular function is normal. The left ventricular ejection fraction is within the normal range. The Ejection Fraction is >55%. No regional wall motion abnormalities noted. The left ventricular diastolic function is normal. No left ventricle thrombus noted on this study. There is no ventricular septal defect visualized. There is no left ventricular aneurysm. There is no mass noted in the left ventricle. RIGHT VENTRICLE The right ventricle is normal size. There is normal right ventricular wall thickness. The right ventricular systolic function is normal. ATRIA The left atrium is mildly dilated. The right atrium size is normal. The interatrial septum is intact with no evidence for an atrial septal defect. AORTIC VALVE The aortic valve is normal in structure and function. No aortic regurgitation is present. There is no aortic valvular stenosis. There is no aortic valvular vegetation. MITRAL VALVE The mitral valve is normal in structure and function. There is no evidence of mitral valve prolapse. There is no mitral valve stenosis. There is no mitral valve regurgitation noted. TRICUSPID VALVE The tricuspid valve is normal in structure and function. There is no tricuspid valve regurgitation noted. There is no tricuspid valve prolapse or vegetation. There is no tricuspid valve stenosis. PULMONIC VALVE The pulmonary valve is normal in structure and function. There is no pulmonic valvular regurgitation. There is no pulmonic valvular stenosis. GREAT VESSELS The aortic root is normal in size. The ascending aorta is normal in size. The pulmonary artery is normal. The IVC is normal in size and collapses >50% with inspiration. PERICARDIAL EFFUSION The pericardium appears normal. There is no pleural effusion. <Conclusion> There is mild to moderate concentric left ventricular hypertrophy. The left ventricular function is normal. The Ejection Fraction is >55%.
== END 2016-10-05 20:05 | disposition home or self-care (01) | DRG 750 ==
LOC: C.ER 19:52 → C.9E 22:48 → C.9I 10-03 04:52 → C.3T 10-04 18:54
PROVIDERS: ADMIT Hospitalist; ATTEND Hospitalist
PROC: HZ2ZZZZ Detoxification Services for Substance Abuse Treatment (ICD-10-PCS; principal; 2016-10-04)
PROC: HZ32ZZZ Individual Counseling for Substance Abuse Treatment, Cognitive-Behavioral (ICD-10-PCS; 2016-10-04)
PROC: HZ42ZZZ Group Counseling for Substance Abuse Treatment, Cognitive-Behavioral (ICD-10-PCS; 2016-10-04)
PROC: HZ46ZZZ Group Counseling for Substance Abuse Treatment, Psychoeducation (ICD-10-PCS; 2016-10-04)
PROC: HZ36ZZZ Individual Counseling for Substance Abuse Treatment, Psychoeducation (ICD-10-PCS; 2016-10-04)
PROC: GZ56ZZZ Individual Psychotherapy, Supportive (ICD-10-PCS; 2016-10-04)
DX: F10.220 Alcohol dependence with intoxication, uncomplicated (principal); N17.9 Acute kidney failure, unspecified; R65.20 Severe sepsis without septic shock; A41.9 Sepsis, unspecified organism; E87.2 Acidosis; F33.1 Major depressive disorder, recurrent, moderate; N18.9 Chronic kidney disease, unspecified; E86.0 Dehydration; E87.6 Hypokalemia; R07.9 Chest pain, unspecified; F10.230 Alcohol dependence with withdrawal, uncomplicated; E83.42 Hypomagnesemia; E83.39 Other disorders of phosphorus metabolism; F41.9 Anxiety disorder, unspecified; I12.9 Hypertensive chronic kidney disease with stage 1 through stage 4 chronic kidney disease, or unspecified chronic kidney disease; Y90.2 Blood alcohol level of 40-59 mg/100 ml; R11.10 Vomiting, unspecified; G47.33 Obstructive sleep apnea (adult) (pediatric)